=== PATIENT | male | born 1935 | race Caucasian/White ===

== ENCOUNTER 2016-09-27 07:36 | Inpatient (IN) | payer MEDICARE ==
[~2016-09-27] VITALS: Ht 177.8 cm; Wt 56.7 kg
[~2016-09-27 07:36] MED LIST: /TAMS4CA OR; /WARF25TA OR; ACET-654 PO; ASPI81TA83 OR; DICL250C70 PO; ENSULIQ9 PO; LISI5TAB OR; MUPI2OI TOP; PAIN325T OR; PERC5TAB8 OR; PERC7.5T8 OR
[2016-09-27 08:57] LABS: BASO % 0.1 % (0.0-1.0); EOS % 0.2 % (0.0-3.0); LARGE UNSTAINED CELL # 0.1 K/mm3 (0.0-0.4); LYMPH # 0.8 K/mm3 (1.5-4.5); LYMPH % 6.6 % (24.0-44.0); MEAN CORPUSCULAR HGB CONC 33.4 g/dl (32.0-36.5); MONO # 0.4 K/mm3 (0.0-0.8); MONO % 3.2 % (0.0-5.0); NEUTROPHILS # 10.3 K/mm3 (1.8-7.7); NEUTROPHILS % 88.9 % (36.0-66.0); PLATELET COUNT, AUTOMATED 296 k/mm3 (150-450); RED CELL DISTRIBUTION WIDTH 12.8 % (11.5-14.5); WHITE BLOOD COUNT 11.5 K/mm3 (4.0-10.0)
[2016-09-27 09:21] LABS: ANION GAP 6 MEQ/L (8-16); BLOOD UREA NITROGEN 26 MG/DL (7-18); CALCIUM LEVEL 8.9 MG/DL (8.8-10.2); CARBON DIOXIDE LEVEL 34 MEQ/L (21-32); CHLORIDE LEVEL 107 MEQ/L (98-107); CREATININE FOR GFR 0.91 MG/DL (0.70-1.30); GLOMERULAR FILTRATION RATE > 60.0 (>35); GLUCOSE, FASTING 103 MG/DL (83-110); POTASSIUM SERUM 3.6 MEQ/L (3.5-5.1); SODIUM LEVEL 147 MEQ/L (136-145)
--- NOTE | 2016-09-27 09:39 | REP ---
Semi upright AP and lateral chest radiograph 09/27/2016 Indication: Altered mental status Comparison: portable chest 07/15/2016, portable chest 02/24/2015 Findings: Atherosclerotic changes are noted in the ectatic thoracic aorta. Patchy interstitial infiltrates and/or atelectasis are present within lower lobes. There are also some patchy interstitial changes within the right upper lobe in parahilar location. There are no pleural effusions. Impression: Bibasilar interstitial infiltrates and/or atelectatic changes. Patchy interstitial changes in the right upper lobe in para hilar location. Differential diagnosis can include pneumonitis, atelectasis. Right parahilar mass is much less likely, and was not present on prior study 07/15/16. Recommend follow-up to insure complete resolution. Signed by Melisa De Jesus MD 09/27/2016 09:31 A
[2016-09-27] MEDS ORDERED: ZOSYN 3.375 GM VIAL (J2543) As Ordered ONE (14:12)
[2016-09-27] MEDS ORDERED: VANCOMYCIN 1000 MG/20 ML VIAL (J3370) As Ordered ONE (14:12)
--- NOTE | 2016-09-27 15:02 | HPEPDOC ---
Medical History and Physical Date of Admission 09/27/16 History and Physical ATTENDING: Dr. Bo PCP:Dr Deras CC: Flushed and coughing HPI: 81yoM with a past medical history significant for carotid vascular disease , expressive aphasia, hypertension, hyperlipidemia who is accompanied by his who states he has been ill with a cold for the past week. Over the past 24 hrs he has felt flushed. his AM He felt feverish to tough and cough was worse, rhinorrhea-white, lethargic. Denies anorexia. Denies any chills, VALADEZ, CP, SOB,palpitations, abdominal pain, N/V/D or changes in bowel or bladder habits. Pt with chronic incontinence and wears adult diapers. The patient's states he is very sensitive to any medications. He bruises very easily, he does not take any medications at home. he had been following with Dr Garcia for Left heel ulcer which has been healed per . Upon presentation to the hospital the patient was found to have HCAP, thus the hospitalist team was consulted. PMHx: Expressive aphasia Carotid vascular disease/status post carotid endarterectomy- Declines antiplatelet therapy Osteoarthritis Osteoporosis- declines treatment Vitamin D Def- declines supplement. Hypertension Hyperlipidemia- declines statin BPH Rosacea Chronic incontinence History of pressure ulcer/chronic wounds-left heel/right ankle- followed by Dr. Garcia PSHX: Colonoscopy February 2011 ORIF left hip fracture 08/28 Cataract OD 01/29 Left carotid endarterectomy complicated by hematoma postoperatively requiring second surgical procedure 12/29 Cataract OS SOCHX: Resides in: [place] Marital Status: Kids: 1 Employment: Retired financial services agent Tobacco use: Denies ETOH: Denies Illicit Drugs: Denies Recent travel: Denies Advanced directives: [facility]OL[facility] 01/04/16 DNR document is scanned into system FAMHX: Noncontributory ROS: Patient is unable to provide. PE: GEN: 81yoM, appears stated age. Thin, cachectic appearing. No acute distress. Alert, mumbling speech. HEENT: Normocephalic, atraumatic. Pupils are equal, round, and reactive to light. The patient will not open eyes for exam. Sclera are nonicteric. Conjunctiva without injection. Nose midline. Nasal turbinates without bogginess. EACs both patent BL. TMs both visualized and sheets with good cone of light, no bulging or erythema. No facial asymmetry noted. dry mucous membranes. Dentition poor. Pharynx pink and dry, no cobblestoning. Neck supple, trachea midline. No lymphadenopathy or thyromegaly appreciated. CHEST: Regular rate and rhythm +S1, +S2 LUNGS: Clear to auscultation bilaterally. No wheezes, rales, or rhonchi. Breathing appears symmetric and easy. No accessory muscle use. ABD: Round, soft, non-tender, non-distended. +Bowel sounds throughout. No rebound or guarding. No costovertebral angle tenderness. EXT: No edema. Contracture LLE. Dressing is applied to the left heel. this is removed and there is only a very small ulceration noted. There is a 4 x 4.5 cm black appearing pressure ulcer noted at right hip, 2 cm diameter ulcer noted right lateral elbow. SKIN: [place], dry, warm. NEURO: The patient is able to move his upper and lower extremities. He is lethargic. He is not following commands. Mumbling speech. CXR: Bibasilar interstitial infiltrates and/or atelectatic changes. Patchy interstitial changes in the right upper lobe in para hilar location. Differential diagnosis can include pneumonitis, atelectasis. Right parahilar mass is much less likely, and was not present on prior study 07/15/16. Recommend follow-up to insure complete resolution. EKG: Sinus bradycardia at 58 bpm Flu neg. A&P: 81yoM with a past medical history significant for carotid vascular disease, expressive aphasia, hypertension, hyperlipidemia who is accompanied by his who states he has been ill with a cold for the past week. Over the past 24 hrs he has felt flushed. his AM He felt feverish to tough and cough was worse, rhinorrhea-white, lethargic. The patient will be admitted to M/S for at least [address] Bo's service. Patient is discussed with Dr Acevedo. HCAP. IVF at 75 cc/hr. IV Vanco- pharmacy dosed /Levaquin renally dosed 750mg IV Q48hr- can re asses if renal function improves. Flu neg. BC x 2 pending. Sputum cx pending, (if pt able to provide). RUL changes on imaging noted and recommends f/u imaging to ensure resolution. History of expressive aphasia. Speech therapy evaluation is requested. Unsteady gait/H/O fall. Pt states no recent falls but loss balance and "hit " hip on chair in July. Will request PT/OT as well. Carotid vascular disease/carotid endarterectomy. Patient and have adamantly declined treatment with antiplatelet therapy as outpatient. As per outpatient records Plavix causes side effects, declines ASA. Hypertension. Patient does not take any medication as outpatient. Blood pressure in emergency department is noted to be 107/72. Monitor. Sinus bradycardia. HR 58on EKG. Trend in ED stable- 58-69. Hyperlipidemia. As per outpatient records, patient and have adamantly declined treatment with statin. History of pressure ulcer left heel. Pt with Pressure ulcer Rt Hip and elbow as well. -followed as outpatient by Dr. Garcia. Will request wound care, dressing changes. Wound care Clt requested. DVT prophylaxis. SCD/TEDS. concerned regarding ease of bruising. (Plt 144 07/20, 296 on admission.) The patient is a DNR per MOLST 01/04/16 scanned into [employer] I, Ceci Acevedo, have seen and examined the above patient and agree with the plan as documented by CLEMENTE Mix. Vital Signs 107/72 68 98.6 98%2 L NC Laboratory Data Labs 24H Laboratory Tests 2 09/27/16 08:37: Anion Gap 6L, White Blood Count 11.5H, Red Blood Count 3.41L, Hemoglobin 11.6L, Hematocrit 34.8L, Mean Corpuscular Volume 102.0H, Mean Corpuscular Hemoglobin 34.0H, Mean Corpuscular Hemoglobin Concent 33.4, Red Cell Distribution Width 12.8, Platelet Count 296, Neutrophils (%) (Auto) 88.9H, Lymphocytes (%) (Auto) 6.6L, Monocytes (%) (Auto) 3.2, Eosinophils (%) (Auto) 0.2, Basophils (%) (Auto ) 0.1, Neutrophils # (Auto) 10.3H, Lymphocytes # (Auto) 0.8L, Monocytes # (Auto ) 0.4, Eosinophils # (Auto) 0.0, Basophils # (Auto) 0.0, Blood Urea Nitrogen 26H , Creatinine 0.91, Sodium Level 147H, Potassium Level 3.6, Chloride Level 107, Carbon Dioxide Level 34H, Calcium Level 8.9, Total Creatine Kinase 742H, Creatine Kinase MB 12.6H, Creatine Kinase MB Relative Index 1.69, Glomerular Filtration Rate > 60.0, Lactic Acid Level 1.3, Large Unclassified Cells # 0.1, Large Unclassified Cells % 1.0, Troponin I 0.03 CBC/BMP Laboratory Tests 09/27/16 08:37 Calcium Level 8.9, Total Creatine Kinase 742 H, Red Blood Count 3.41 L, Mean Corpuscular Volume 102.0 H, Mean Corpuscular Hemoglobin 34.0 H, Mean Corpuscular Hemoglobin Concent 33.4, Red Cell Distribution Width 12.8, Neutrophils (%) (Auto) 88.9 H, Lymphocytes (%) (Auto) 6.6 L, Monocytes (%) (Auto ) 3.2, Eosinophils (%) (Auto) 0.2, Basophils (%) (Auto) 0.1, Neutrophils # (Auto ) 10.3 H, Lymphocytes # (Auto) 0.8 L, Monocytes # (Auto) 0.4, Eosinophils # ( Auto) 0.0, Basophils # (Auto) 0.0 Microbiology Microbiology 09/27/16 Blood Culture, Received Pending 09/27/16 Blood Culture, Received Pending 09/27/16 Influenza Virus Type A Antigen - Final, Complete 09/27/16 Influenza Virus Type B Antigen - Final, Complete Home Medications Scheduled (Ensure Plus) 1 Liq Liq 8 OZ PO QAM Scheduled PRN Acetaminophen (Acetaminophen) 325 Mg Tab 325 MG PO Q4H PRN PRN PAIN Allergies Coded Allergies: Unclassified Drugs (Unverified Adverse Reaction, Unknown, " STATES THE PT IS VERY SENSITIVE TO MANY MEDICATIONS", 09/27/16) Cassie Fuchs Sep 27, 2016 15:02 CECI ACEVEDO Sep 27, 2016 18:01
[2016-09-27] MEDS ORDERED: VANCOMYCIN HCL 1,000 MG, VIAL MATE ADAPTER 1 EACH in D5W 250 ML IV SCH (15:30)
[2016-09-27 17:15] VITALS: BP 114/58
--- NOTE | 2016-09-27 20:04 | EDDOCDS ---
Nurse's Notes [facility] Name: Conrado Mercado Age: 81 yrs Sex: Male : 1935 Arrival Date: 09/27/2016 Time: 07:36 Bed 15 Private MD: Diagnosis: Pneumonia, unspecified organism Presentation: 09/27 07:44 Presenting complaint: EMS states: SO called concerned pt felt flushed this morning, SO jjr reports upper respiratory symptoms over the last few days. Adult Sepsis Screening: The patient does not have new or worsening altered mentation. Patient's respiratory rate is less than 22. Systolic blood pressure is greater than 100. Patient has a qSOFA score of 0- Negative Sepsis Screen. Suicide/Homicide risk assessment- the patient denies having any suicidal and/or homicidal ideations and does not present with any other emotional, behavioral or mental health complaints. Status: Patient is not a industrial servicer or dependent. Transition of care: patient was not received from another setting of care. 07:44 Acuity: MARINA Level 3 r 07:44 Method Of Arrival: Ambulance jjr Triage Assessment: 08:09 General: Appears in no apparent distress, slender. Cardiovascular: Rhythm is sinus jr rhythm. Respiratory: Airway is patent Respiratory effort is even, unlabored, Respiratory pattern is regular. Derm: Skin is pink, warm & dry. 20:02 Pain: Unable to use pain scale. Does not appear to understand pain scale. ms18 Historical: - Allergies: no known allergies; - Home Meds: 1. 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 Patient is speech impaired. - Family history: Not pertinent. - : The pt / caregiver states he / she is not on anticoagulants. Home medication list is obtained from family members. - Exposure Risk Screening:: None identified. Screenin:45 Fall Risk. jjr 08:11 Screening information is obtained from family members. Fall risk: At risk due to age, jjr The following interventions are performed due to a positive Fall Risk Screen: added to special handling. Assistance ADL's: Requires assistance with meal preparation, this assistance is provided by family members, housework, assistance is provided by family members, medication administration, assistance is provided by family members. Abuse/DV Screen: The patient / caregiver reports he/she is: not in a situation that causes fear, pain or injury. Nutritional screening: No deficits noted. Advance Directives: Currently, there is a health care proxy, Patricia Mercado. There is an active DNR order but there is no copy available at this time. home support is adequate. Assessment: 08:11 General: Appears in no apparent distress. jjr 08:25 Adult Sepsis Screening: Accepted Exclusions- The Sepsis Protocol has been ordered by jr the Provider. 09:26 General: Appears to be sleeping. Cardiovascular: Rhythm is sinus rhythm. Respiratory: jjr Airway is patent Respiratory effort is even, unlabored, Respiratory pattern is regular. Derm: Skin is pink, warm & dry. 10:17 General: Appears to be sleeping. Behavior is drowsy. Cardiovascular: Rhythm is sinus jjr bradycardia. Respiratory: Airway is patent Respiratory effort is even, unlabored, Respiratory pattern is regular. Derm: Skin is pink, warm & dry. 11:25 General: Appears in no apparent distress, pt non verbal not nodding head to questions jjr either, pt's left leg contracted, pt's brief changed. Cardiovascular: Rhythm is sinus rhythm. Respiratory: Airway is patent Respiratory effort is even, unlabored, Respiratory pattern is regular, congested cough. Derm: Skin is pink, warm & dry. 12:12 General: Appears in no apparent distress, sitting quietly on stretcher with and jjr dgtr attentive at bedside. Respiratory: Airway is patent Respiratory effort is even, unlabored, Respiratory pattern is regular. Derm: Skin is pink, warm & dry. 14:04 General: Appears in no apparent distress. Cardiovascular: Rhythm is sinus rhythm. jjr Respiratory: Airway is patent Respiratory effort is even, unlabored, Respiratory pattern is regular. Derm: Skin is pink, warm & dry. 15:20 Reassessment: Patient appears in no apparent distress at this time. Cardiovascular: tm5 Rhythm is sinus rhythm No ectopy. Respiratory: Airway is patent Respiratory effort is even, unlabored, Respiratory pattern is regular. Derm: Skin is pink, warm & dry. 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 18:55 General: Pt in no acute distress. Family at bedside. Will continue to monitor pt. ms18 19:54 General: Spoke with Eliane in [facility] and they are ready for the pt at this time. ms18 General: Appears in no apparent distress, comfortable, Behavior is cooperative, quiet. Respiratory: Airway is patent Respiratory effort is even, unlabored. Derm: Skin is pink, warm & dry. 20:03 Neurological: Level of Consciousness is awake, alert, Oriented to none. ms18 Vital Signs: 07:46 BP 130 / 70; Pulse 69; Resp 18; Temp 98.9(TE); Pulse Ox 96% on R/A; Weight 54.6 kg (M); ct3 Height 5 ft. 10 in. (177.80 cm) (R); 07:58 BP 109 / 54 (auto/); jjr 07:58 Pulse 68 MON; Pulse Ox 90% ; jjr 08:13 BP 96 / 50 (auto/); jjr 08:13 Pulse 64 MON; Resp 18; Pulse Ox 93% on R/A; jjr 08:28 BP 100 / 59 (auto/); jjr 08:28 Pulse 58 MON; Pulse Ox 93% ; jjr 09:05 Pulse 88 MON; Pulse Ox 96% ; jjr 09:22 BP 97 / 53 (auto/); jjr 09:22 Pulse 60 MON; Resp 18; Pulse Ox 96% on R/A; jjr 09:43 BP 104 / 51 (auto/); jjr 09:43 Pulse 58 MON; Pulse Ox 89% ; jjr 09:49 Pulse 58 MON; Pulse Ox 90% ; jjr 09:50 Pulse 62 MON; Pulse Ox 88% ; jjr 09:55 Pulse 56 MON; Pulse Ox 97% on 2 lpm NC; jjr 10:43 BP 111 / 64 (auto/); jjr 10:43 Pulse 62 MON; Resp 18; Pulse Ox 97% on R/A; jjr 11:13 BP 119 / 60 (auto/); jjr 11:13 Pulse 62 MON; Resp 18; Pulse Ox 97% on 2 lpm NC; jjr 11:43 BP 97 / 52 (auto/); jjr 11:43 Pulse 62 MON; Resp 20; Pulse Ox 97% on 2 lpm NC; jjr 12:13 BP 100 / 50 (auto/); jjr 12:13 Pulse 64 MON; Pulse Ox 97% ; jjr 12:14 Temp 98.6(TE); jjr 12:43 BP 113 / 53 (auto/); jjr 12:43 Pulse 66 MON; Pulse Ox 98% ; jjr 13:13 BP 113 / 53 (auto/); jjr 13:13 Pulse 70 MON; Pulse Ox 96% ; jjr 13:43 BP 107 / 72 (auto/); jjr 13:43 Pulse 68 MON; Pulse Ox 96% ; jjr 14:13 BP 120 / 55 (auto/); tm5 14:13 Pulse 70 MON; Pulse Ox 97% on 2 lpm NC; tm5 14:43 BP 108 / 53 (auto/); tm5 14:43 Pulse 70 MON; Pulse Ox 98% ; tm5 15:13 BP 122 / 60 (auto/); tm5 15:13 Pulse 62 MON; Resp 20; Pulse Ox 98% on 2 lpm NC; Pain 0/10; tm5 16:13 BP 109 / 68 (auto/); tm5 16:13 Pulse 64 MON; Resp 18 S; Pulse Ox 96% on 2 lpm NC; Pain 0/10; tm5 16:43 BP 114 / 58 (auto/); ms18 16:43 Pulse 64 MON; Pulse Ox 87% ; ms18 17:13 BP 116 / 74 (auto/); Pulse 60; Resp 18; Temp 96.6(T); Pulse Ox 98% on 2 lpm NC; jjr 17:43 BP 115 / 56 (auto/); jjr 17:43 Pulse 58 MON; Resp 18; Pulse Ox 97% on 2 lpm NC; jjr 20:02 BP 123 / 62; Pulse 80; Resp 18; Temp 98.8(TE); Pulse Ox 98% ; ms18 07:46 Body Mass Index 17.27 (54.60 kg, 177.80 cm) ct3 Vitals: 19:58 Log In Time N/A - ambulance arrival. ms18 ED Course: 07:37 Patient visited by Jessika Stockton, Neuropsychiatrist. deg 07:37 Patient moved to Waiting deg 07:37 Patient moved to 15 deg 07:45 Triage Initiated jjr 07:46 Accompanied by Family Member, Patient has correct armband on for positive ct3 identification. Placed in gown. Bed in low position. Call light in reach. Side rails up X2. casket liner on. Pulse ox on. NIBP on. 07:47 Patient visited by Bea Bobby PCA. ct3 08:07 Victor M Del Valle MD is Attending Physician. br1 08:11 The patient / caregiver is instructed regarding the plan of care and ED course. jjr 08:13 Patient visited by Maday Guerrero RN. jjr 08:16 Patient visited by Victor M Del Valle MD. br1 08:39 -Influenza A&B Rapid Antigen - Nose Sent. jmk 08:39 Lactic Acid (Moffett tube on ice) Sent. jmk 08:39 -Blood Culture Sent. jmk 08:39 Basic Metabolic Profile Sent. jmk 08:39 CBC with Diff Sent. jmk 08:39 Cardiac Injury Profile Sent. jmk 08:39 Troponin Sent. jmk 08:54 EKG done. (by ED staff). Reviewed by Victor M Del Valle MD. ct3 09:01 Patient visited by Bea Bobby PCA. ct3 09:06 Inserted saline lock: 20 gauge in right antecubital area and blood collected. jjr Labs/Blood culture drawn. 09:26 Patient visited by Maday Guerrero RN. jjr 09:41 [facility] Payment Agreement was scanned into [employer] and attached to record. lg 09:47 Chest, 2 View (pa\E\lat) Returned. EDMS 09:57 O2 via nasal cannula \T\ 2L/min. jjr 10:17 Patient visited by Maday Guerrero RN. jjr 11:25 Patient visited by Maday Guerrero RN. jjr 11:58 Patient visited by Nelda Frank PCA. jlf 12:13 Patient visited by Maday Guerrero RN. jjr 12:50 Patient visited by Nelda Frank PCA. jlf 12:53 Patient visited by Bea Bobby PCA. ct3 12:53 Diet: Patient given regular meal. ct3 13:22 Patient visited by Nelda Frank PCA. jlf 14:03 Patient visited by Victor M Del Valle MD. br1 14:06 Curtis Ceci is Hospitalizing Provider. br1 14:24 Patient visited by Bianca Trujillo,ÓSCAR. tm5 14:40 Patient visited by Bianca Trujillo RN. tm5 14:40 Visited by Hospitalist at bedside for admission eval. tm5 16:15 Patient visited by Bianca Trujillo,ÓSCAR. tm5 16:43 Property :Personal belongings accompany Pt. ms18 16:43 No procedures done that require assistance. ms18 18:00 Patient visited by Maday Guerrero RN. jjr Administered Medications: 14:25 Drug: Piperacillin-Tazobactam 3.375 grams [piperacillin-tazobactam 3.375 gram tm5 intravenous solution] Route: IVPB; Infused Over: 30 mins; Site: right antecubital; 15:13 Follow up: IV Status: Completed infusion; IV Intake: 50ml tm5 15:14 Drug: vancomycin 1 grams [vancomycin 1,000 mg intravenous injection] {Note: given IVPB tm5 in D5W 250cc.} Route: IVPB; Infused Over: 60 mins; Site: right antecubital; 16:15 Follow up: IV Status: Completed infusion; IV Intake: 250ml tm5 Intake: 15:13 IV: 50.00ml; Total: 50.00ml. tm5 16:15 IV: 250.00ml; Total: 300.00ml. tm5 Order Results: Lab Order: Basic Metabolic Profile; SPEC'M 09/27/16 08:37 Test: GLUCOSE, FASTING; Value: 103; Range: 83-110; Units: MG/DL; Status: F Test: BLOOD UREA NITROGEN; Value: 26; Range: 7-18; Abnormal: Above high normal; Units: MG/DL; Status: F Test: CREATININE FOR GFR; Value: 0.91; Range: 0.70-1.30; Units: MG/DL; Status: F Test: GLOMERULAR FILTRATION RATE; Value: > 60.0; Range: >35; Status: F Test: SODIUM LEVEL; Value: 147; Range: 136-145; Abnormal: Above high normal; Units: MEQ/L; Status: F Test: POTASSIUM SERUM; Value: 3.6; Range: 3.5-5.1; Units: MEQ/L; Status: F Test: CHLORIDE LEVEL; Value: 107; Range: 98-107; Units: MEQ/L; Status: F Test: CARBON DIOXIDE LEVEL; Value: 34; Range: 21-32; Abnormal: Above high normal; Units: MEQ/L; Status: F Test: ANION GAP; Value: 6; Range: 8-16; Abnormal: Below low normal; Units: MEQ/L; Status: F Test: CALCIUM LEVEL; Value: 8.9; Range: 8.8-10.2; Units: MG/DL; Status: F Test Note: ; Units are mL/min/1.73 m2 Chronic Kidney Disease Staging per NKF: Stage I & II GFR >=60 Normal to Mildly Decreased Stage III GFR 30-59 Moderately Decreased Stage IV GFR 15-29 Severely Decreased Stage V GFR <15 Very Little GFR Left ESRD GFR <15 on [employer] SUPERVISOR Lab Order: CBC with Diff; SPEC'M 09/27/16 08:37 Test: WHITE BLOOD COUNT; Value: 11.5; Range: 4.0-10.0; Abnormal: Above high normal; Units: K/mm3; Status: F Test: RED BLOOD COUNT; Value: 3.41; Range: 4.30-6.10; Abnormal: Below low normal; Units: M/mm3; Status: F Test: HEMOGLOBIN; Value: 11.6; Range: 14.0-18.0; Abnormal: Below low normal; Units: g/dl; Status: F Test: HEMATOCRIT; Value: 34.8; Range: 42.0-52.0; Abnormal: Below low normal; Units: %; Status: F Test: MEAN CORPUSCULAR VOLUME; Value: 102.0; Range: 80.0-96.0; Abnormal: Above high normal; Units: fl; Status: F Test: MEAN CORPUSCULAR HEMOGLOBIN; Value: 34.0; Range: 27.0-33.0; Abnormal: Above high normal; Units: pg; Status: F Test: MEAN CORPUSCULAR HGB CONC; Value: 33.4; Range: 32.0-36.5; Units: g/dl; Status: F Test: RED CELL DISTRIBUTION WIDTH; Value: 12.8; Range: 11.5-14.5; Units: %; Status: F Test: PLATELET COUNT, AUTOMATED; Value: 296; Range: 150-450; Units: k/mm3; Status: F Test: NEUTROPHILS %; Value: 88.9; Range: 36.0-66.0; Abnormal: Above high normal; Units: %; Status: F Test: LYMPH %; Value: 6.6; Range: 24.0-44.0; Abnormal: Below low normal; Units: %; Status: F Test: MONO %; Value: 3.2; Range: 0.0-5.0; Units: %; Status: F Test: EOS %; Value: 0.2; Range: 0.0-3.0; Units: %; Status: F Test: BASO %; Value: 0.1; Range: 0.0-1.0; Units: %; Status: F Test: LARGE UNSTAINED CELL %; Value: 1.0; Range: 0.0-4.0; Units: %; Status: F Test: NEUTROPHILS #; Value: 10.3; Range: 1.8-7.7; Abnormal: Above high normal; Units: K/mm3; Status: F Test: LYMPH #; Value: 0.8; Range: 1.5-4.5; Abnormal: Below low normal; Units: K/mm3; Status: F Test: MONO #; Value: 0.4; Range: 0.0-0.8; Units: K/mm3; Status: F Test: EOS #; Value: 0.0; Range: 0.0-0.50; Units: K/mm3; Status: F Test: BASO #; Value: 0.0; Range: 0.0-0.2; Units: K/mm3; Status: F Test: LARGE UNSTAINED CELL #; Value: 0.1; Range: 0.0-0.4; Units: K/mm3; Status: F Lab Order: Cardiac Injury Profile; SPEC'M 09/27/16 08:37 Test: CPK CREATINE PHOSPHOKINASE; Value: 742; Range: 39-308; Abnormal: Above high normal; Units: U/L; Status: F Test: CK-MB VALUE MASS; Value: 12.6; Range: 0.0-3.6; Abnormal: Above high normal; Units: NG/ML; Status: F Test: MB/CK RELATIVE INDEX; Value: 1.69; Range: < OR =4; Status: F Test Note: ; DIAGNOSIS CRITERIA MMB ng/ml Relative Index (RI) NON-AMI < or = 5 N/A MOFFETT ZONE > 5 < or = 4 AMI > 5 > 4 Lab Order: Troponin; SPEC'M 09/27/16 08:37 Test: TROPONIN I; Value: 0.03; Range: < 0.10; Units: NG/ML; Status: F Test Note: ; Troponin I Reference Interval for [place] LOCI: 99th Percentile= 0.00-0.045 ng/ml Risk Stratification: <= 0.10 ng/ml Decreased Risk for Adverse Clinical Events. 0.10-1.50 ng/ml Increased Risk for Adverse Clinical Events. Evaluation of additional criterion and/or repeat testing in 2-6 hours is suggested to rule out myocardial damage. >= 1.50 ng/ml Indicative of Myocardial Injury. Lab Order: Lactic Acid (Moffett tube on ice); SPEC'M 09/27/16 08:37 Test: LACTIC ACID LEVEL, LACTATE; Value: 1.3; Range: 0.4-2.0; Units: MMOL/L; Status: F Lab Order: -Influenza A&B Rapid Antigen - Nose; SPEC'M 09/27/16 08:37 Test: INFLUENZA A RAPID SCR by ICA; Value: INFLUENZA A RESULTS NEGATIVE; Status: F Test: INFLUENZA A RAPID SCR by ICA; Value: Comments:; Status: F Test: INFLUENZA B RAPID SCR by ICA; Value: INFLUENZA B RESULTS NEGATIVE; Status: F Test Note: ; The Influenza test is a direct rapid immunoassay for the qualitative detection of Influenza viral antigen. Cell culture (Viral Culture) testing should be considered to confirm NEGATIVE results and to assist in detecting other viruses that can provide similar clinical symptoms. Please contact the lab within 24 hours ([phone]) if confirmatory testing is desired. Radiology Order: Chest, 2 View (pa\E\lat) Test: Chest, 2 View (pa\E\lat) REASON FOR EXAMINATION: Cough; Semi upright AP and lateral chest radiograph 09/27/2016; ; Indication: Altered mental status; ; Comparison: portable chest 07/15/2016, portable chest 02/24/2015; ; Findings: Atherosclerotic changes are noted in the ectatic thoracic aorta.; Patchy interstitial infiltrates and/or atelectasis are present within lower; lobes. There are also some patchy interstitial changes within the right upper; lobe in parahilar location. There are no pleural effusions.; ; Impression:; ; Bibasilar interstitial infiltrates and/or atelectatic changes.; ; Patchy interstitial changes in the right upper lobe in para hilar location.; Differential diagnosis can include pneumonitis, atelectasis. Right parahilar; mass is much less likely, and was not present on prior study 07/15/16.; Recommend follow-up to insure complete resolution.; ; ; Signed by; Melisa De Jesus MD 09/27/2016 09:31 A; Outcome: 14:06 Decision to Hospitalize by Provider. br1 16:43 Discharge Assessment: patient administered narcotics - no. The following High Risk ms18 Discharge criteria are identified: None. Admitted to Med/Surg accompanied by tech, family with patient, via stretcher, with chart. Condition: stable. No special radiology studies were completed. 20:04 Patient left the ED. ms18 Signatures: Dispatcher [employer] EDJessika Shelley, Neuropsychiatrist Unit deg Matthieu Guevara,ÓSCAR RN Eunice Osuna, Reg Reg lg Victor M Del Valle MD MD br1 Maday Guerrero RN RN Bea Clinton, CLAM GRADER CLAM GRADER ct3 Nelda Frank, CLAM GRADER CLAM GRADER raleighf Cheri Freeman RN RN ms18 Bianca Trujillo,RN RN tm5 Corrections: (The following items were deleted from the chart) 08:14 08:11 Home Meds: Tylenol 325 mg Oral tab 2 tabs prn; angelica dominguez 20:03 19:54 General: Appears in no apparent distress, comfortable, Behavior is drowsy, ms18 ms18 MTDD
--- NOTE | 2016-09-27 20:04 | EDDOCDS ---
Physician Documentation [facility] Name: Conrado Mercado Age: 81 yrs Sex: Male : 1935 Arrival Date: 09/27/2016 Time: 07:36 Bed 15 Private MD: Disposition: 09/27/16 14:06 Hospitalization ordered by Ceci Acevedo for Inpatient Admission. Preliminary diagnosis is Pneumonia, unspecified organism. - Bed requested for [facility]. - Status is Inpatient Admission. ms18 - Condition is Stable. - Problem is new. - Symptoms are unchanged. Historical: - Allergies: no known allergies; - Home Meds: 1. 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 Patient is speech impaired. - Family history: Not pertinent. - : The pt / caregiver states he / she is not on anticoagulants. Home medication list is obtained from family members. - Exposure Risk Screening:: None identified. Vital Signs: 09/27 07:46 BP 130 / 70; Pulse 69; Resp 18; Temp 98.9(TE); Pulse Ox 96% on R/A; Weight 54.6 kg / ct3 120.37 lbs (M); Height 5 ft. 10 in. (177.80 cm) (R); 07:58 BP 109 / 54 (auto/); jjr 07:58 Pulse 68 MON; Pulse Ox 90% ; jjr 08:13 BP 96 / 50 (auto/); jjr 08:13 Pulse 64 MON; Resp 18; Pulse Ox 93% on R/A; jjr 08:28 BP 100 / 59 (auto/); jjr 08:28 Pulse 58 MON; Pulse Ox 93% ; jjr 09:05 Pulse 88 MON; Pulse Ox 96% ; jjr 09:22 BP 97 / 53 (auto/); jjr 09:22 Pulse 60 MON; Resp 18; Pulse Ox 96% on R/A; jjr 09:43 BP 104 / 51 (auto/); jjr 09:43 Pulse 58 MON; Pulse Ox 89% ; jjr 09:49 Pulse 58 MON; Pulse Ox 90% ; jjr 09:50 Pulse 62 MON; Pulse Ox 88% ; jjr 09:55 Pulse 56 MON; Pulse Ox 97% on 2 lpm NC; jjr 10:43 BP 111 / 64 (auto/); jjr 10:43 Pulse 62 MON; Resp 18; Pulse Ox 97% on R/A; jjr 11:13 BP 119 / 60 (auto/); jjr 11:13 Pulse 62 MON; Resp 18; Pulse Ox 97% on 2 lpm NC; jjr 11:43 BP 97 / 52 (auto/); jjr 11:43 Pulse 62 MON; Resp 20; Pulse Ox 97% on 2 lpm NC; jjr 12:13 BP 100 / 50 (auto/); jjr 12:13 Pulse 64 MON; Pulse Ox 97% ; jjr 12:14 Temp 98.6(TE); jjr 12:43 BP 113 / 53 (auto/); jjr 12:43 Pulse 66 MON; Pulse Ox 98% ; jjr 13:13 BP 113 / 53 (auto/); jjr 13:13 Pulse 70 MON; Pulse Ox 96% ; jjr 13:43 BP 107 / 72 (auto/); jjr 13:43 Pulse 68 MON; Pulse Ox 96% ; jjr 14:13 BP 120 / 55 (auto/); tm5 14:13 Pulse 70 MON; Pulse Ox 97% on 2 lpm NC; tm5 14:43 BP 108 / 53 (auto/); tm5 14:43 Pulse 70 MON; Pulse Ox 98% ; tm5 15:13 BP 122 / 60 (auto/); tm5 15:13 Pulse 62 MON; Resp 20; Pulse Ox 98% on 2 lpm NC; Pain 0/10; tm5 16:13 BP 109 / 68 (auto/); tm5 16:13 Pulse 64 MON; Resp 18 S; Pulse Ox 96% on 2 lpm NC; Pain 0/10; tm5 16:43 BP 114 / 58 (auto/); ms18 16:43 Pulse 64 MON; Pulse Ox 87% ; ms18 17:13 BP 116 / 74 (auto/); Pulse 60; Resp 18; Temp 96.6(T); Pulse Ox 98% on 2 lpm NC; jjr 17:43 BP 115 / 56 (auto/); jjr 17:43 Pulse 58 MON; Resp 18; Pulse Ox 97% on 2 lpm NC; jjr 20:02 BP 123 / 62; Pulse 80; Resp 18; Temp 98.8(TE); Pulse Ox 98% ; ms18 07:46 Body Mass Index 17.27 (54.60 kg, 177.80 cm) ct3 MDM: 08:17 Inspector Water Pollution Control/Pulse Ox/q 30 min VS ordered. br1 08:17 IV Saline Lock ordered. br1 08:17 Rhythm Strip to chart ordered. br1 08:17 Undress patient appropriately for examination ordered. br1 08:17 -Blood Culture (Adults Only), peripheral from different site, or from device/port/PICC br1 etc. if present ordered. 08:18 -Blood Culture Ordered. EDMS 08:18 Chest, 2 View (pa\E\lat) Ordered. EDMS 08:18 Basic Metabolic Profile Ordered. EDMS 08:18 CBC with Diff Ordered. EDMS 08:18 Cardiac Injury Profile Ordered. EDMS 08:18 Troponin Ordered. EDMS 08:18 Lactic Acid (Moffett tube on ice) Ordered. EDMS 08:18 ECG WITH READING ER PHYS+CARDIAG ordered. EDMS 08:19 -Influenza A&B Rapid Antigen - Nose Ordered. EDMS 08:21 -Blood Culture (Adults Only), peripheral from different site, or from device/port/PICC deg etc. if present complete. 08:22 BLOOD CULTURES Ordered. EDMS 09:07 Financial registration complete. lg 09:41 [facility] [place] Payment Agreement was scanned into [employer] and attached to record. lg 10:15 REGULAR+DIET ordered. EDMS 12:35 REGULAR+DIET ordered. EDMS 13:41 Basic Metabolic Profile Reviewed. br1 13:41 CBC with Diff Reviewed. br1 13:41 Cardiac Injury Profile Reviewed. br1 13:41 Troponin Reviewed. br1 13:41 Lactic Acid (Moffett tube on ice) Reviewed. br1 13:41 -Influenza A&B Rapid Antigen - Nose Reviewed. br1 13:41 Chest, 2 View (pa\E\lat) Reviewed. br1 14:04 BED REQUEST+ADM ordered. EDMS 14:04 vancomycin 1 grams IVPB once over 60 mins; dilute in 250mL of NS or D5W ordered. br1 14:04 Piperacillin-Tazobactam 3.375 grams IVPB once over 30 mins; dilute in 50mL of NS or D5W br1 ordered. 15:03 Admission / Observation Status ordered. EDMS 15:18 REGULAR DIET ordered. EDMS 15:18 OTHER CUSTOM DIETS ordered. EDMS 15:18 PHYSICAL THERAPY EVAL & TREAT ordered. EDMS 15:41 SPUTUM CULTURE AND GRAM STAIN Ordered. EDMS 19:31 CBC WITH DIFFERENTIAL Ordered. EDMS 19:31 COMPLETE COMPHRENSIVE METABOLI Ordered. EDMS Administered Medications: 14:25 Drug: Piperacillin-Tazobactam 3.375 grams [piperacillin-tazobactam 3.375 gram tm5 intravenous solution] Route: IVPB; Infused Over: 30 mins; Site: right antecubital; 15:13 Follow up: IV Status: Completed infusion; IV Intake: 50ml tm5 15:14 Drug: vancomycin 1 grams [vancomycin 1,000 mg intravenous injection] {Note: given IVPB tm5 in D5W 250cc.} Route: IVPB; Infused Over: 60 mins; Site: right antecubital; 16:15 Follow up: IV Status: Completed infusion; IV Intake: 250ml tm5 Signatures: Dispatcher [employer] EDJessika Shelley, Negative Stripper Unit deg Eunice Kerr Reg Reg lg Roggie, Brian, MD MD br1 Maday Guerrero RN RN jjr Smith, Mallory, RN RN ms18 Alfredo Potts RN RN mts Matice, Tonya RN tm5 The chart was reviewed and I authenticate all verbal orders and agree with the evaluation and treatment provided.Corrections: (The following items were deleted from the chart) 08:14 08:11 Home Meds: Tylenol 325 mg Oral tab 2 tabs prn; jjmari dominguez Attachments: 09:41 [facility] Payment Agreement lg MTDD
[2016-09-27 20:12] VITALS: BP 121/56
--- NOTE | 2016-09-27 20:41 | PHACANCOPD ---
PHARMACY VANCOMYCIN DOSING Pt Demographics Demographics Patient Age:81 , Weight:54.600 , Gender: male Adjusted Body Weight Events Past 24 Hours Events Past 24 Hours: NO: Change in CrCl, Dialysis, Diuretic Therapy, Elevation in WBC, Fever, Other, Pending Diagnostics, Pending Procedures Vancomycin Vancomycin Target Ranges: 15-20 mcg/ml Vancomycin Load Y/N: Yes Load Dose Date Time Vancomycin Load Dose: 1GM Date: 09/27/16 Time: 14:15 in the ER Vancomycin Dose Date: 09/27/16. Current Vancomycin Dose: [750 MG IV Q12H (22:00)] Intermittent Dosing?: No Labs Labs Laboratory Tests 09/27/16 08:37 Calcium Level 8.9, Total Creatine Kinase 742 H, Red Blood Count 3.41 L, Mean Corpuscular Volume 102.0 H, Mean Corpuscular Hemoglobin 34.0 H, Mean Corpuscular Hemoglobin Concent 33.4, Red Cell Distribution Width 12.8, Neutrophils (%) (Auto) 88.9 H, Lymphocytes (%) (Auto) 6.6 L, Monocytes (%) (Auto ) 3.2, Eosinophils (%) (Auto) 0.2, Basophils (%) (Auto) 0.1, Neutrophils # (Auto ) 10.3 H, Lymphocytes # (Auto) 0.8 L, Monocytes # (Auto) 0.4, Eosinophils # ( Auto) 0.0, Basophils # (Auto) 0.0 Micro Microbiology 09/27/16 Blood Culture, Received Pending 09/27/16 Blood Culture, Received Pending 09/27/16 Influenza Virus Type A Antigen - Final, Complete 09/27/16 Influenza Virus Type B Antigen - Final, Complete Creatinine Clearance Date:09/27/16. Creatinine Clearance: [>40 ml/min]. Assessment and Plan Maintaining Current Dose?: No Reason for dose change: Other Pharmacist Note Pharmacist Note Date: 09/27/16. Pharm.D. note: 81YO MALE, 54.6KG in WEIGHT, 70" in HEIGHT, CRCL > 40ml/min IS ADMITTED WITH HCAP AND A VANCO GOAL 15-20 mcg/ml. HE WAS GIVEN A 1GM DOSE IN THE ER AT 14:15 THIS AFTERNOON. WE SHALL CONTINUE HIM ON VANCO 750MG IV Q12H STARTING AT 22:00 THIS EVENING. WE WILL DRAW A VANCO TR WHEN HE IS AT STEADY STATE NETTE,[facility] Sep 27, 2016 20:40
[2016-09-27] MEDS: VANCOMYCIN HCL 750 MG, VIAL MATE ADAPTER 1 EACH in D5W 250 ML IV SCH (21:52)
[2016-09-27] MEDS: NS 1,000 ML IV SCH (21:52)
[2016-09-28] MEDS: LevoFLOXacin 750 MG in APPROPRIATE DILUENT 1 EA IV SCH (00:14)
[2016-09-28] MEDS: NS 1,000 ML IV SCH ×2 (04:58→16:50)
[2016-09-28 06:00] VITALS: BP 111/53
[2016-09-28 06:47] LABS: BASO % 0.1 % (0.0-1.0); EOS # 0.1 K/mm3 (0.0-0.50); EOS % 0.5 % (0.0-3.0); LARGE UNSTAINED CELL # 0.1 K/mm3 (0.0-0.4); LARGE UNSTAINED CELL % 1.1 % (0.0-4.0); LYMPH # 0.8 K/mm3 (1.5-4.5); LYMPH % 6.7 % (24.0-44.0); MEAN CORPUSCULAR HEMOGLOBIN 34.4 pg (27.0-33.0); MEAN CORPUSCULAR HGB CONC 33.4 g/dl (32.0-36.5); MEAN CORPUSCULAR VOLUME 103.1 fl (80.0-96.0); MONO # 0.4 K/mm3 (0.0-0.8); MONO % 3.3 % (0.0-5.0); NEUTROPHILS # 10.1 K/mm3 (1.8-7.7); NEUTROPHILS % 88.3 % (36.0-66.0); PLATELET COUNT, AUTOMATED 303 k/mm3 (150-450); RED CELL DISTRIBUTION WIDTH 12.6 % (11.5-14.5); WHITE BLOOD COUNT 11.4 K/mm3 (4.0-10.0)
[2016-09-28 07:08] LABS: ALBUMIN 1.6 GM/DL (3.2-5.2); ALBUMIN/GLOBULIN RATIO 0.41 (1.00-1.93); ALKALINE PHOSPHATASE 150 U/L (45-117); ALT/SGPT 72 U/L (12-78); ANION GAP 7 MEQ/L (8-16); AST/SGOT 106 U/L (15-37); BILIRUBIN,TOTAL 0.5 MG/DL (0.2-1.0); BLOOD UREA NITROGEN 25 MG/DL (7-18); CALCIUM LEVEL 8.4 MG/DL (8.8-10.2); CARBON DIOXIDE LEVEL 32 MEQ/L (21-32); CHLORIDE LEVEL 105 MEQ/L (98-107); CREATININE FOR GFR 0.75 MG/DL (0.70-1.30); GLOMERULAR FILTRATION RATE > 60.0 (>35); GLUCOSE, FASTING 89 MG/DL (83-110); POTASSIUM SERUM 3.6 MEQ/L (3.5-5.1); SODIUM LEVEL 144 MEQ/L (136-145); TOTAL PROTEIN 5.5 GM/DL (6.4-8.2)
[2016-09-28 08:05] VITALS: BP 111/53
[2016-09-28] MEDS: VANCOMYCIN HCL 750 MG, VIAL MATE ADAPTER 1 EACH in D5W 250 ML IV SCH (10:36)
[2016-09-28 14:00] VITALS: BP 117/71
--- NOTE | 2016-09-28 14:06 | IPNPDOC ---
Text Note Date of Service The patient was seen on 09/28/16 at 13:46. NOTE Subjective: Pt is nonverbal. states he's tolerating PO, and doing well. Objective: Vitals: (see below) General: No acute distress, laying comfortably in bed. HEENT: Moist mucous membranes. Neck: No JVD or lymphadenopathy. Cardiac: RRR, No murmurs Pulm: Diminished breath sounds and crackles at the bases b/l. No wheezing or rhonchi Abd: NT/ND + BS Ext: No edema or cyanosis Awake, expressive aphasia, Following commands, moving both arms, LE contracted. b/l heel pressure ulcers healing with bandage intact. Minimal participation with neuro exam. Labs (see below) Images: CXR 09/27/16 Impression: Bibasilar interstitial infiltrates and/or atelectatic changes. Patchy interstitial changes in the right upper lobe in para hilar location. Differential diagnosis can include pneumonitis, atelectasis. Right parahilar mass is much less likely, and was not present on prior study 07/15/16. Recommend follow-up to insure complete resolution. Assessment/Plan 1. HCAP - on Vanc/Levaquin. Trend CRP, WBC. Blood cx/sputum cx pending. Cont IVF. Mild leukocytosis. 2. 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 Not on ASA/plavix/statin? I have called Dr. Deras's office who will be getting back to me. 3. Pressure ulcers noted on admission on right hip, and 2cm - follows with Dr. Garcia. Wound care requested on admission 4. HTN - diet controlled. Stable. 5. Severe Protein Calorie Malnutrition noted on admission DVT prophy: LEVI/SCDs. VS,Fishbone, I+O VS, Fishbone, I+O Laboratory Tests 09/28/16 06:06 Calcium Level 8.4 L, Aspartate Amino Transf (AST/SGOT) 106 H, Alanine Aminotransferase (ALT/SGPT) 72, Alkaline Phosphatase 150 H, Total Bilirubin 0.5 , Total Protein 5.5 L, Albumin 1.6 L, Red Blood Count 2.92 L, Mean Corpuscular Volume 103.1 H, Mean Corpuscular Hemoglobin 34.4 H, Mean Corpuscular Hemoglobin Concent 33.4, Red Cell Distribution Width 12.6, Neutrophils (%) (Auto) 88.3 H, Lymphocytes (%) (Auto) 6.7 L, Monocytes (%) (Auto) 3.3, Eosinophils (%) (Auto) 0.5, Basophils (%) (Auto) 0.1, Neutrophils # (Auto) 10.1 H, Lymphocytes # (Auto ) 0.8 L, Monocytes # (Auto) 0.4, Eosinophils # (Auto) 0.1, Basophils # (Auto) 0.0 Vital Signs Date Time Temp Pulse Resp B/P Pulse Ox O2 Delivery O2 Flow Rate FiO2 09/28/16 08:16 96 Room Air 09/28/16 08:05 97.0 61 17 111/53 2.0 I&O- Last 24 Hours up to 6 AM 09/28/16 05:59 Intake Total 425 ml Balance 425 ml KIRA ERAZO MD Sep 28, 2016 14:05
--- NOTE | 2016-09-28 19:42 | ECGEPIP ---
Stationary ECG Study [facility] - ED Test Date: 2016-09-27 Pat Name: THIEN RAVI Department: Room: - Gender: M Pool Nurse: ct : 1935 Requested By: REGULO Briseno Order Number: [id number] Reading MD: Opal Moya Measurements Intervals [place] Rate: 58 P: 64 MD: 147 QRS: 40 QRSD: 93 T: 53 QT: 416 QTc: 409 Interpretive Statements SINUS BRADYCARDIA POSSIBLE LATERAL MYOCARDIAL INFARCTION, OF INDETERMINATE AGE NSTTW ABNORMALITY BASELINE ARTIFACT LIMITS INTERPRETATION Electronically Signed On 09-28-2016 19:41:50 EST by Opal Moya
[2016-09-28] MEDS: ACETAMINOPHEN TAB 650MG DOSE (2X325MG) PO PRN (19:48)
--- NOTE | 2016-09-28 21:41 | PHACANCOPD ---
PHARMACY VANCOMYCIN DOSING Pt Demographics Demographics Patient Age:81 , Weight:55.800 , Gender: male Adjusted Body Weight Events Past 24 Hours Events Past 24 Hours: NO: Change in CrCl, Dialysis, Diuretic Therapy, Elevation in WBC, Fever, Other, Pending Diagnostics, Pending Procedures Vancomycin Vancomycin Target Ranges: 15-20 mcg/ml Vancomycin Load Y/N: Yes Load Dose Date Time Vancomycin Load Dose: 1GM Date: 09/27/16 Time: 14:15 in the ER Vancomycin Dose Date: 09/28/16. INCREASE Current Vancomycin Dose: [1000 MG IV Q12H (22:00)] Intermittent Dosing?: No Labs Micro Microbiology 09/27/16 Blood Culture - Preliminary, Resulted No growth after 24 hours . All specim... 09/27/16 Blood Culture - Preliminary, Resulted No growth after 24 hours . All specim... Creatinine Clearance Date:09/27/16. Creatinine Clearance: [>40 ml/min]. Assessment and Plan Maintaining Current Dose?: No Reason for dose change: Trough too low Pharmacist Note Pharmacist Note Date: 09/28/16. Pharm.D. note: 81YO MALE, 55.8KG in WEIGHT, 70" in HEIGHT, CRCL >40ml/min IS ADMITTED WITH HCAP AND A VANCO GOAL 15-20 mcg/ml. AFTER 24HRS HIS VANCO THROUGH THIS EVENING = 13.1 mcg/ml. HIS WEIGHT WAS ALSO INCREASED TO 55.8KG IN [facility]; THEREFORE, WE WILL INCREASE HIS VANCO DOSE TO 1GM STARTING AT 22:00 THIS EVENING AND CONTINUE Q12H 10am/10pm. HE CONTINUES TO BE ON LEVAQUIN 750MG IV Q48H (next due 00:00 09/30/16). WE WILL DRAW A VANCO TR WHEN HE IS AT STEADY STATE. DAYNE, Pharm.D. [facility] Sep 28, 2016 21:41
[2016-09-28 22:00] VITALS: BP 140/63
[2016-09-28] MEDS: VANCOMYCIN HCL 1,000 MG, VIAL MATE ADAPTER 1 EACH in D5W 250 ML IV SCH (22:08)
[2016-09-29 06:00] VITALS: BP 116/52
[2016-09-29] MEDS: NS 1,000 ML IV SCH ×2 (06:43→21:00)
[2016-09-29 07:01] LABS: BASO % 0.1 % (0.0-1.0); EOS # 0.1 K/mm3 (0.0-0.50); EOS % 0.7 % (0.0-3.0); LARGE UNSTAINED CELL # 0.1 K/mm3 (0.0-0.4); LARGE UNSTAINED CELL % 0.9 % (0.0-4.0); LYMPH # 0.7 K/mm3 (1.5-4.5); LYMPH % 9.4 % (24.0-44.0); MEAN CORPUSCULAR HEMOGLOBIN 34.4 pg (27.0-33.0); MEAN CORPUSCULAR HGB CONC 33.4 g/dl (32.0-36.5); MEAN CORPUSCULAR VOLUME 103.1 fl (80.0-96.0); MONO # 0.4 K/mm3 (0.0-0.8); MONO % 4.8 % (0.0-5.0); NEUTROPHILS # 6.5 K/mm3 (1.8-7.7); NEUTROPHILS % 84.1 % (36.0-66.0); PLATELET COUNT, AUTOMATED 307 k/mm3 (150-450); RED CELL DISTRIBUTION WIDTH 12.7 % (11.5-14.5); WHITE BLOOD COUNT 7.7 K/mm3 (4.0-10.0)
[2016-09-29 07:13] LABS: ALBUMIN 1.6 GM/DL (3.2-5.2); ALBUMIN/GLOBULIN RATIO 0.43 (1.00-1.93); ALKALINE PHOSPHATASE 120 U/L (45-117); ALT/SGPT 75 U/L (12-78); ANION GAP 4 MEQ/L (8-16); AST/SGOT 81 U/L (15-37); BILIRUBIN,TOTAL 0.6 MG/DL (0.2-1.0); BLOOD UREA NITROGEN 16 MG/DL (7-18); CALCIUM LEVEL 7.9 MG/DL (8.8-10.2); CARBON DIOXIDE LEVEL 32 MEQ/L (21-32); CHLORIDE LEVEL 109 MEQ/L (98-107); CREATININE FOR GFR 0.66 MG/DL (0.70-1.30); GLOMERULAR FILTRATION RATE > 60.0 (>35); GLUCOSE, FASTING 89 MG/DL (83-110); POTASSIUM SERUM 3.5 MEQ/L (3.5-5.1); SODIUM LEVEL 145 MEQ/L (136-145); TOTAL PROTEIN 5.3 GM/DL (6.4-8.2)
[2016-09-29] MEDS: VANCOMYCIN HCL 1,000 MG, VIAL MATE ADAPTER 1 EACH in D5W 250 ML IV SCH ×2 (09:37→22:24)
[2016-09-29 14:00] VITALS: BP 141/66
--- NOTE | 2016-09-29 15:31 | IPNPDOC ---
Text Note Date of Service The patient was seen on 09/29/16 at 15:28. NOTE Subjective: Pt is nonverbal. states he's tolerating PO, and doing well. Objective: Vitals: (see below) General: No acute distress, laying comfortably in bed. HEENT: Moist mucous membranes. Neck: No JVD or lymphadenopathy. Cardiac: RRR, No murmurs Pulm: Diminished breath sounds and crackles at the bases b/l. No wheezing or rhonchi Abd: NT/ND + BS Ext: No edema or cyanosis Awake, expressive aphasia, Following commands, moving both arms, LE contracted. b/l heel pressure ulcers healing with bandage intact. Minimal participation with neuro exam. Labs (see below) Images: CXR 09/27/16 Impression: Bibasilar interstitial infiltrates and/or atelectatic changes. Patchy interstitial changes in the right upper lobe in para hilar location. Differential diagnosis can include pneumonitis, atelectasis. Right parahilar mass is much less likely, and was not present on prior study 07/15/16. Recommend follow-up to insure complete resolution. Assessment/Plan 1. HCAP - on Vanc/Levaquin. Trend CRP, WBC. Blood cx/sputum cx pending. Cont IVF. Mild leukocytosis. 2. 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 I have spoken with Dr. Deras - states no contraindication for anti-platelets agents. is agreeable to ASA and statin , which will be started today. 3. Pressure ulcers noted on admission on right hip, and 2cm - follows with Dr. Garcia. Wound care on board. Will need outpt f/u with Dr. Garcia. 4. HTN - diet controlled. Stable. DVT prophy: LEVI/SCDs. Will be working with PT and case management is working to ensure a safe home discharge. VS,Fishbone, I+O VS, Fishbone, I+O Laboratory Tests 09/29/16 06:27 Calcium Level 7.9 L, Aspartate Amino Transf (AST/SGOT) 81 H, Alanine Aminotransferase (ALT/SGPT) 75, Alkaline Phosphatase 120 H, Total Bilirubin 0.6 , Total Protein 5.3 L, Albumin 1.6 L, Red Blood Count 2.96 L, Mean Corpuscular Volume 103.1 H, Mean Corpuscular Hemoglobin 34.4 H, Mean Corpuscular Hemoglobin Concent 33.4, Red Cell Distribution Width 12.7, Neutrophils (%) (Auto) 84.1 H, Lymphocytes (%) (Auto) 9.4 L, Monocytes (%) (Auto) 4.8, Eosinophils (%) (Auto) 0.7, Basophils (%) (Auto) 0.1, Neutrophils # (Auto) 6.5, Lymphocytes # (Auto) 0.7 L, Monocytes # (Auto) 0.4, Eosinophils # (Auto) 0.1, Basophils # (Auto) 0.0 Vital Signs Date Time Temp Pulse Resp B/P Pulse Ox O2 Delivery O2 Flow Rate FiO2 09/29/16 09:23 Room Air 09/29/16 06:00 96.4 59 17 116/52 97 09/28/16 08:05 2.0 I&O- Last 24 Hours up to 6 AM 09/29/16 06:00 Intake Total 2620 ml Balance 2620 ml KIRA ERAZO MD Sep 29, 2016 15:30
[2016-09-29] MEDS: ASPIRIN 81 MG ENTERIC TAB PO SCH (16:04)
[2016-09-29] MEDS: ATORVASTATIN 20 MG TAB PO SCH (16:04)
[2016-09-29] MEDS: ACETAMINOPHEN TAB 650MG DOSE (2X325MG) PO PRN (16:05)
--- NOTE | 2016-09-29 21:05 | EDDOCDS ---
Nurse's Notes [facility] Name: Conrado Mercado Age: 81 yrs Sex: Male : 1935 Arrival Date: 09/27/2016 Time: 07:36 Bed 15 Private MD: Diagnosis: Pneumonia, unspecified organism Presentation: 09/27 07:44 Presenting complaint: EMS states: SO called concerned pt felt flushed this morning, SO jjr reports upper respiratory symptoms over the last few days. Adult Sepsis Screening: The patient does not have new or worsening altered mentation. Patient's respiratory rate is less than 22. Systolic blood pressure is greater than 100. Patient has a qSOFA score of 0- Negative Sepsis Screen. Suicide/Homicide risk assessment- the patient denies having any suicidal and/or homicidal ideations and does not present with any other emotional, behavioral or mental health complaints. 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 Transition of care: patient was not received from another setting of care. 07:44 Acuity: MARINA Level 3 r 07:44 Method Of Arrival: Ambulance jjr Triage Assessment: 08:09 General: Appears in no apparent distress, slender. Cardiovascular: Rhythm is sinus jr rhythm. Respiratory: Airway is patent Respiratory effort is even, unlabored, Respiratory pattern is regular. Derm: Skin is pink, warm & dry. 20:02 Pain: Unable to use pain scale. Does not appear to understand pain scale. ms18 Historical: - Allergies: no known allergies; - Home Meds: 1. 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 Patient is speech impaired. - Family history: Not pertinent. - : The pt / caregiver states he / she is not on anticoagulants. Home medication list is obtained from family members. - Exposure Risk Screening:: None identified. Screenin:45 Fall Risk. jjr 08:11 Screening information is obtained from family members. Fall risk: At risk due to age, jjr The following interventions are performed due to a positive Fall Risk Screen: added to special handling. Assistance ADL's: Requires assistance with meal preparation, this assistance is provided by family members, housework, assistance is provided by family members, medication administration, assistance is provided by family members. Abuse/DV Screen: The patient / caregiver reports he/she is: not in a situation that causes fear, pain or injury. Nutritional screening: No deficits noted. Advance Directives: Currently, there is a health care proxy, Patricia Mercado. There is an active DNR order but there is no copy available at this time. home support is adequate. Assessment: 08:11 General: Appears in no apparent distress. jjr 08:25 Adult Sepsis Screening: Accepted Exclusions- The Sepsis Protocol has been ordered by jr the Provider. 09:26 General: Appears to be sleeping. Cardiovascular: Rhythm is sinus rhythm. Respiratory: jjr Airway is patent Respiratory effort is even, unlabored, Respiratory pattern is regular. Derm: Skin is pink, warm & dry. 10:17 General: Appears to be sleeping. Behavior is drowsy. Cardiovascular: Rhythm is sinus jjr bradycardia. Respiratory: Airway is patent Respiratory effort is even, unlabored, Respiratory pattern is regular. Derm: Skin is pink, warm & dry. 11:25 General: Appears in no apparent distress, pt non verbal not nodding head to questions jjr either, pt's left leg contracted, pt's brief changed. Cardiovascular: Rhythm is sinus rhythm. Respiratory: Airway is patent Respiratory effort is even, unlabored, Respiratory pattern is regular, congested cough. Derm: Skin is pink, warm & dry. 12:12 General: Appears in no apparent distress, sitting quietly on stretcher with and jjr dgtr attentive at bedside. Respiratory: Airway is patent Respiratory effort is even, unlabored, Respiratory pattern is regular. Derm: Skin is pink, warm & dry. 14:04 General: Appears in no apparent distress. Cardiovascular: Rhythm is sinus rhythm. jjr Respiratory: Airway is patent Respiratory effort is even, unlabored, Respiratory pattern is regular. Derm: Skin is pink, warm & dry. 15:20 Reassessment: Patient appears in no apparent distress at this time. Cardiovascular: tm5 Rhythm is sinus rhythm No ectopy. Respiratory: Airway is patent Respiratory effort is even, unlabored, Respiratory pattern is regular. Derm: Skin is pink, warm & dry. 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 18:55 General: Pt in no acute distress. Family at bedside. Will continue to monitor pt. ms18 19:54 General: Spoke with Eliane in [facility] and they are ready for the pt at this time. ms18 General: Appears in no apparent distress, comfortable, Behavior is cooperative, quiet. Respiratory: Airway is patent Respiratory effort is even, unlabored. Derm: Skin is pink, warm & dry. 20:03 Neurological: Level of Consciousness is awake, alert, Oriented to none. ms18 Vital Signs: 07:46 BP 130 / 70; Pulse 69; Resp 18; Temp 98.9(TE); Pulse Ox 96% on R/A; Weight 54.6 kg (M); ct3 Height 5 ft. 10 in. (177.80 cm) (R); 07:58 BP 109 / 54 (auto/); jjr 07:58 Pulse 68 MON; Pulse Ox 90% ; jjr 08:13 BP 96 / 50 (auto/); jjr 08:13 Pulse 64 MON; Resp 18; Pulse Ox 93% on R/A; jjr 08:28 BP 100 / 59 (auto/); jjr 08:28 Pulse 58 MON; Pulse Ox 93% ; jjr 09:05 Pulse 88 MON; Pulse Ox 96% ; jjr 09:22 BP 97 / 53 (auto/); jjr 09:22 Pulse 60 MON; Resp 18; Pulse Ox 96% on R/A; jjr 09:43 BP 104 / 51 (auto/); jjr 09:43 Pulse 58 MON; Pulse Ox 89% ; jjr 09:49 Pulse 58 MON; Pulse Ox 90% ; jjr 09:50 Pulse 62 MON; Pulse Ox 88% ; jjr 09:55 Pulse 56 MON; Pulse Ox 97% on 2 lpm NC; jjr 10:43 BP 111 / 64 (auto/); jjr 10:43 Pulse 62 MON; Resp 18; Pulse Ox 97% on R/A; jjr 11:13 BP 119 / 60 (auto/); jjr 11:13 Pulse 62 MON; Resp 18; Pulse Ox 97% on 2 lpm NC; jjr 11:43 BP 97 / 52 (auto/); jjr 11:43 Pulse 62 MON; Resp 20; Pulse Ox 97% on 2 lpm NC; jjr 12:13 BP 100 / 50 (auto/); jjr 12:13 Pulse 64 MON; Pulse Ox 97% ; jjr 12:14 Temp 98.6(TE); jjr 12:43 BP 113 / 53 (auto/); jjr 12:43 Pulse 66 MON; Pulse Ox 98% ; jjr 13:13 BP 113 / 53 (auto/); jjr 13:13 Pulse 70 MON; Pulse Ox 96% ; jjr 13:43 BP 107 / 72 (auto/); jjr 13:43 Pulse 68 MON; Pulse Ox 96% ; jjr 14:13 BP 120 / 55 (auto/); tm5 14:13 Pulse 70 MON; Pulse Ox 97% on 2 lpm NC; tm5 14:43 BP 108 / 53 (auto/); tm5 14:43 Pulse 70 MON; Pulse Ox 98% ; tm5 15:13 BP 122 / 60 (auto/); tm5 15:13 Pulse 62 MON; Resp 20; Pulse Ox 98% on 2 lpm NC; Pain 0/10; tm5 16:13 BP 109 / 68 (auto/); tm5 16:13 Pulse 64 MON; Resp 18 S; Pulse Ox 96% on 2 lpm NC; Pain 0/10; tm5 16:43 BP 114 / 58 (auto/); ms18 16:43 Pulse 64 MON; Pulse Ox 87% ; ms18 17:13 BP 116 / 74 (auto/); Pulse 60; Resp 18; Temp 96.6(T); Pulse Ox 98% on 2 lpm NC; jjr 17:43 BP 115 / 56 (auto/); jjr 17:43 Pulse 58 MON; Resp 18; Pulse Ox 97% on 2 lpm NC; jjr 20:02 BP 123 / 62; Pulse 80; Resp 18; Temp 98.8(TE); Pulse Ox 98% ; ms18 07:46 Body Mass Index 17.27 (54.60 kg, 177.80 cm) ct3 Vitals: 19:58 Log In Time N/A - ambulance arrival. ms18 ED Course: 07:37 Patient visited by Jessika Stockton, Birdcage Assembler. deg 07:37 Patient moved to Waiting deg 07:37 Patient moved to 15 deg 07:45 Triage Initiated jjr 07:46 Accompanied by Family Member, Patient has correct armband on for positive ct3 identification. Placed in gown. Bed in low position. Call light in reach. Side rails up X2. youth nutritional monitor on. Pulse ox on. NIBP on. 07:47 Patient visited by Bea Bobby PCA. ct3 08:07 Victor M Del Valle MD is Attending Physician. br1 08:11 The patient / caregiver is instructed regarding the plan of care and ED course. jjr 08:13 Patient visited by Maday Guerrero RN. jjr 08:16 Patient visited by Victor M Del Valle MD. br1 08:39 -Influenza A&B Rapid Antigen - Nose Sent. jmk 08:39 Lactic Acid (Moffett tube on ice) Sent. jmk 08:39 -Blood Culture Sent. jmk 08:39 Basic Metabolic Profile Sent. jmk 08:39 CBC with Diff Sent. jmk 08:39 Cardiac Injury Profile Sent. jmk 08:39 Troponin Sent. jmk 08:54 EKG done. (by ED staff). Reviewed by Victor M Del Valle MD. ct3 09:01 Patient visited by Bea Bobby PCA. ct3 09:06 Inserted saline lock: 20 gauge in right antecubital area and blood collected. jjr Labs/Blood culture drawn. 09:26 Patient visited by Maday Guerrero RN. jjr 09:41 [facility] Payment Agreement was scanned into [employer] and attached to record. lg 09:47 Chest, 2 View (pa\E\lat) Returned. EDMS 09:57 O2 via nasal cannula \T\ 2L/min. jjr 10:17 Patient visited by Maday Guerrero RN. jjr 11:25 Patient visited by Maday Guerrero RN. jjr 11:58 Patient visited by Nelda Frank PCA. jlf 12:13 Patient visited by Maday Guerrero RN. jjr 12:50 Patient visited by Nelda Frank PCA. jlf 12:53 Patient visited by Bea Bobby PCA. ct3 12:53 Diet: Patient given regular meal. ct3 13:22 Patient visited by Nelda Frank PCA. jlf 14:03 Patient visited by Victor M Del Valle MD. br1 14:06 Curtis Ceci is Hospitalizing Provider. br1 14:24 Patient visited by Bianca Trujillo,ÓSCAR. tm5 14:40 Patient visited by Bianca Trujillo,ÓSCAR. tm5 14:40 Visited by Hospitalist at bedside for admission eval. tm5 16:15 Patient visited by Bianca Trujillo,ÓSCAR. tm5 16:43 Property :Personal belongings accompany Pt. ms18 16:43 No procedures done that require assistance. ms18 18:00 Patient visited by Maday Guerrero RN. jjr 09/28 10:37 ECG/EKG was scanned into [employer] and attached to record. gb 10:37 T-Sheet-- Draft Copy was scanned into [employer] and attached to record. gb Administered Medications: 09/27 14:25 Drug: Piperacillin-Tazobactam 3.375 grams [piperacillin-tazobactam 3.375 gram tm5 intravenous solution] Route: IVPB; Infused Over: 30 mins; Site: right antecubital; 15:13 Follow up: IV Status: Completed infusion; IV Intake: 50ml tm5 15:14 Drug: vancomycin 1 grams [vancomycin 1,000 mg intravenous injection] {Note: given IVPB tm5 in D5W 250cc.} Route: IVPB; Infused Over: 60 mins; Site: right antecubital; 16:15 Follow up: IV Status: Completed infusion; IV Intake: 250ml tm5 Intake: 15:13 IV: 50.00ml; Total: 50.00ml. tm5 16:15 IV: 250.00ml; Total: 300.00ml. tm5 Order Results: Lab Order: Basic Metabolic Profile; SPEC'M 09/27/16 08:37 Test: GLUCOSE, FASTING; Value: 103; Range: 83-110; Units: MG/DL; Status: F Test: BLOOD UREA NITROGEN; Value: 26; Range: 7-18; Abnormal: Above high normal; Units: MG/DL; Status: F Test: CREATININE FOR GFR; Value: 0.91; Range: 0.70-1.30; Units: MG/DL; Status: F Test: GLOMERULAR FILTRATION RATE; Value: > 60.0; Range: >35; Status: F Test: SODIUM LEVEL; Value: 147; Range: 136-145; Abnormal: Above high normal; Units: MEQ/L; Status: F Test: POTASSIUM SERUM; Value: 3.6; Range: 3.5-5.1; Units: MEQ/L; Status: F Test: CHLORIDE LEVEL; Value: 107; Range: 98-107; Units: MEQ/L; Status: F Test: CARBON DIOXIDE LEVEL; Value: 34; Range: 21-32; Abnormal: Above high normal; Units: MEQ/L; Status: F Test: ANION GAP; Value: 6; Range: 8-16; Abnormal: Below low normal; Units: MEQ/L; Status: F Test: CALCIUM LEVEL; Value: 8.9; Range: 8.8-10.2; Units: MG/DL; Status: F Test Note: ; Units are mL/min/1.73 m2 Chronic Kidney Disease Staging per NKF: Stage I & II GFR >=60 Normal to Mildly Decreased Stage III GFR 30-59 Moderately Decreased Stage IV GFR 15-29 Severely Decreased Stage V GFR <15 Very Little GFR Left ESRD GFR <15 on SALES ASSIST[employer] Lab Order: CBC with Diff; SPEC'M 09/27/16 08:37 Test: WHITE BLOOD COUNT; Value: 11.5; Range: 4.0-10.0; Abnormal: Above high normal; Units: K/mm3; Status: F Test: RED BLOOD COUNT; Value: 3.41; Range: 4.30-6.10; Abnormal: Below low normal; Units: M/mm3; Status: F Test: HEMOGLOBIN; Value: 11.6; Range: 14.0-18.0; Abnormal: Below low normal; Units: g/dl; Status: F Test: HEMATOCRIT; Value: 34.8; Range: 42.0-52.0; Abnormal: Below low normal; Units: %; Status: F Test: MEAN CORPUSCULAR VOLUME; Value: 102.0; Range: 80.0-96.0; Abnormal: Above high normal; Units: fl; Status: F Test: MEAN CORPUSCULAR HEMOGLOBIN; Value: 34.0; Range: 27.0-33.0; Abnormal: Above high normal; Units: pg; Status: F Test: MEAN CORPUSCULAR HGB CONC; Value: 33.4; Range: 32.0-36.5; Units: g/dl; Status: F Test: RED CELL DISTRIBUTION WIDTH; Value: 12.8; Range: 11.5-14.5; Units: %; Status: F Test: PLATELET COUNT, AUTOMATED; Value: 296; Range: 150-450; Units: k/mm3; Status: F Test: NEUTROPHILS %; Value: 88.9; Range: 36.0-66.0; Abnormal: Above high normal; Units: %; Status: F Test: LYMPH %; Value: 6.6; Range: 24.0-44.0; Abnormal: Below low normal; Units: %; Status: F Test: MONO %; Value: 3.2; Range: 0.0-5.0; Units: %; Status: F Test: EOS %; Value: 0.2; Range: 0.0-3.0; Units: %; Status: F Test: BASO %; Value: 0.1; Range: 0.0-1.0; Units: %; Status: F Test: LARGE UNSTAINED CELL %; Value: 1.0; Range: 0.0-4.0; Units: %; Status: F Test: NEUTROPHILS #; Value: 10.3; Range: 1.8-7.7; Abnormal: Above high normal; Units: K/mm3; Status: F Test: LYMPH #; Value: 0.8; Range: 1.5-4.5; Abnormal: Below low normal; Units: K/mm3; Status: F Test: MONO #; Value: 0.4; Range: 0.0-0.8; Units: K/mm3; Status: F Test: EOS #; Value: 0.0; Range: 0.0-0.50; Units: K/mm3; Status: F Test: BASO #; Value: 0.0; Range: 0.0-0.2; Units: K/mm3; Status: F Test: LARGE UNSTAINED CELL #; Value: 0.1; Range: 0.0-0.4; Units: K/mm3; Status: F Lab Order: Cardiac Injury Profile; SPEC'M 09/27/16 08:37 Test: CPK CREATINE PHOSPHOKINASE; Value: 742; Range: 39-308; Abnormal: Above high normal; Units: U/L; Status: F Test: CK-MB VALUE MASS; Value: 12.6; Range: 0.0-3.6; Abnormal: Above high normal; Units: NG/ML; Status: F Test: MB/CK RELATIVE INDEX; Value: 1.69; Range: < OR =4; Status: F Test Note: ; DIAGNOSIS CRITERIA MMB ng/ml Relative Index (RI) NON-AMI < or = 5 N/A MOFFETT ZONE > 5 < or = 4 AMI > 5 > 4 Lab Order: Troponin; SPEC'M 09/27/16 08:37 Test: TROPONIN I; Value: 0.03; Range: < 0.10; Units: NG/ML; Status: F Test Note: ; Troponin I Reference Interval for [employer] LOCI: 99th Percentile= 0.00-0.045 ng/ml Risk Stratification: <= 0.10 ng/ml Decreased Risk for Adverse Clinical Events. 0.10-1.50 ng/ml Increased Risk for Adverse Clinical Events. Evaluation of additional criterion and/or repeat testing in 2-6 hours is suggested to rule out myocardial damage. >= 1.50 ng/ml Indicative of Myocardial Injury. Lab Order: Lactic Acid (Moffett tube on ice); SPEC'M 09/27/16 08:37 Test: LACTIC ACID LEVEL, LACTATE; Value: 1.3; Range: 0.4-2.0; Units: MMOL/L; Status: F Lab Order: -Influenza A&B Rapid Antigen - Nose; SPEC'M 09/27/16 08:37 Test: INFLUENZA A RAPID SCR by ICA; Value: INFLUENZA A RESULTS NEGATIVE; Status: F Test: INFLUENZA A RAPID SCR by ICA; Value: Comments:; Status: F Test: INFLUENZA B RAPID SCR by ICA; Value: INFLUENZA B RESULTS NEGATIVE; Status: F Test Note: ; The Influenza test is a direct rapid immunoassay for the qualitative detection of Influenza viral antigen. Cell culture (Viral Culture) testing should be considered to confirm NEGATIVE results and to assist in detecting other viruses that can provide similar clinical symptoms. Please contact the lab within 24 hours ([phone]) if confirmatory testing is desired. Radiology Order: Chest, 2 View (pa\E\lat) Test: Chest, 2 View (pa\E\lat) REASON FOR EXAMINATION: Cough; Semi upright AP and lateral chest radiograph 09/27/2016; ; Indication: Altered mental status; ; Comparison: portable chest 07/15/2016, portable chest 02/24/2015; ; Findings: Atherosclerotic changes are noted in the ectatic thoracic aorta.; Patchy interstitial infiltrates and/or atelectasis are present within lower; lobes. There are also some patchy interstitial changes within the right upper; lobe in parahilar location. There are no pleural effusions.; ; Impression:; ; Bibasilar interstitial infiltrates and/or atelectatic changes.; ; Patchy interstitial changes in the right upper lobe in para hilar location.; Differential diagnosis can include pneumonitis, atelectasis. Right parahilar; mass is much less likely, and was not present on prior study 07/15/16.; Recommend follow-up to insure complete resolution.; ; ; Signed by; Melisa De Jesus MD 09/27/2016 09:31 A; Outcome: 14:06 Decision to Hospitalize by Provider. br1 16:43 Discharge Assessment: patient administered narcotics - no. The following High Risk ms18 Discharge criteria are identified: None. Admitted to Med/Surg accompanied by tech, family with patient, via stretcher, with chart. Condition: stable. No special radiology studies were completed. 20:04 Patient left the ED. ms18 Signatures: Dispatcher [employer] EDMS Jessika Stockton, Birdcage Assembler Unit deg Matthieu Guevara,RN RN Mee Ramirez, Reg Reg gb Eunice Kerr, Reg Reg lg Victor M Del Valle MD MD br1 Maday Guerrero RN RN Bea Clinton, CHILD CARE TEAM LEAD CHILD CARE TEAM LEAD ct3 Nelda Frank, CHILD CARE TEAM LEAD CHILD CARE TEAM LEAD jlf Cheri Freeman RN RN ms18 Bianca Trujillo,ÓSCAR RN tm5 Corrections: (The following items were deleted from the chart) 08:14 08:11 Home Meds: Tylenol 325 mg Oral tab 2 tabs prn; jjr jjr 20:03 19:54 General: Appears in no apparent distress, comfortable, Behavior is drowsy, ms18 ms18 Chart Complete MTDD
--- NOTE | 2016-09-29 21:05 | EDDOCDS ---
Physician Documentation [facility] Name: Conrado Mercado Age: 81 yrs Sex: Male : 1935 Arrival Date: 09/27/2016 Time: 07:36 Bed 15 Private MD: Disposition: 09/27/16 14:06 Hospitalization ordered by Ceci Acevedo for Inpatient Admission. Preliminary diagnosis is Pneumonia, unspecified organism. - Bed requested for [address] [place]. - Status is Inpatient Admission. ms18 - Condition is Stable. - Problem is new. - Symptoms are unchanged. Historical: - Allergies: no known allergies; - Home Meds: 1. 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 Patient is speech impaired. - Family history: Not pertinent. - : The pt / caregiver states he / she is not on anticoagulants. Home medication list is obtained from family members. - Exposure Risk Screening:: None identified. Vital Signs: 09/27 07:46 BP 130 / 70; Pulse 69; Resp 18; Temp 98.9(TE); Pulse Ox 96% on R/A; Weight 54.6 kg / ct3 120.37 lbs (M); Height 5 ft. 10 in. (177.80 cm) (R); 07:58 BP 109 / 54 (auto/); jjr 07:58 Pulse 68 MON; Pulse Ox 90% ; jjr 08:13 BP 96 / 50 (auto/); jjr 08:13 Pulse 64 MON; Resp 18; Pulse Ox 93% on R/A; jjr 08:28 BP 100 / 59 (auto/); jjr 08:28 Pulse 58 MON; Pulse Ox 93% ; jjr 09:05 Pulse 88 MON; Pulse Ox 96% ; jjr 09:22 BP 97 / 53 (auto/); jjr 09:22 Pulse 60 MON; Resp 18; Pulse Ox 96% on R/A; jjr 09:43 BP 104 / 51 (auto/); jjr 09:43 Pulse 58 MON; Pulse Ox 89% ; jjr 09:49 Pulse 58 MON; Pulse Ox 90% ; jjr 09:50 Pulse 62 MON; Pulse Ox 88% ; jjr 09:55 Pulse 56 MON; Pulse Ox 97% on 2 lpm NC; jjr 10:43 BP 111 / 64 (auto/); jjr 10:43 Pulse 62 MON; Resp 18; Pulse Ox 97% on R/A; jjr 11:13 BP 119 / 60 (auto/); jjr 11:13 Pulse 62 MON; Resp 18; Pulse Ox 97% on 2 lpm NC; jjr 11:43 BP 97 / 52 (auto/); jjr 11:43 Pulse 62 MON; Resp 20; Pulse Ox 97% on 2 lpm NC; jjr 12:13 BP 100 / 50 (auto/); jjr 12:13 Pulse 64 MON; Pulse Ox 97% ; jjr 12:14 Temp 98.6(TE); jjr 12:43 BP 113 / 53 (auto/); jjr 12:43 Pulse 66 MON; Pulse Ox 98% ; jjr 13:13 BP 113 / 53 (auto/); jjr 13:13 Pulse 70 MON; Pulse Ox 96% ; jjr 13:43 BP 107 / 72 (auto/); jjr 13:43 Pulse 68 MON; Pulse Ox 96% ; jjr 14:13 BP 120 / 55 (auto/); tm5 14:13 Pulse 70 MON; Pulse Ox 97% on 2 lpm NC; tm5 14:43 BP 108 / 53 (auto/); tm5 14:43 Pulse 70 MON; Pulse Ox 98% ; tm5 15:13 BP 122 / 60 (auto/); tm5 15:13 Pulse 62 MON; Resp 20; Pulse Ox 98% on 2 lpm NC; Pain 0/10; tm5 16:13 BP 109 / 68 (auto/); tm5 16:13 Pulse 64 MON; Resp 18 S; Pulse Ox 96% on 2 lpm NC; Pain 0/10; tm5 16:43 BP 114 / 58 (auto/); ms18 16:43 Pulse 64 MON; Pulse Ox 87% ; ms18 17:13 BP 116 / 74 (auto/); Pulse 60; Resp 18; Temp 96.6(T); Pulse Ox 98% on 2 lpm NC; jjr 17:43 BP 115 / 56 (auto/); jjr 17:43 Pulse 58 MON; Resp 18; Pulse Ox 97% on 2 lpm NC; jjr 20:02 BP 123 / 62; Pulse 80; Resp 18; Temp 98.8(TE); Pulse Ox 98% ; ms18 07:46 Body Mass Index 17.27 (54.60 kg, 177.80 cm) ct3 MDM: 08:17 Mutuel Cashier/Pulse Ox/q 30 min VS ordered. br1 08:17 IV Saline Lock ordered. br1 08:17 Rhythm Strip to chart ordered. br1 08:17 Undress patient appropriately for examination ordered. br1 08:17 -Blood Culture (Adults Only), peripheral from different site, or from device/port/PICC br1 etc. if present ordered. 08:18 -Blood Culture Ordered. EDMS 08:18 Chest, 2 View (pa\E\lat) Ordered. EDMS 08:18 Basic Metabolic Profile Ordered. EDMS 08:18 CBC with Diff Ordered. EDMS 08:18 Cardiac Injury Profile Ordered. EDMS 08:18 Troponin Ordered. EDMS 08:18 Lactic Acid (Moffett tube on ice) Ordered. EDMS 08:18 ECG WITH READING ER PHYS+CARDIAG ordered. EDMS 08:19 -Influenza A&B Rapid Antigen - Nose Ordered. EDMS 08:21 -Blood Culture (Adults Only), peripheral from different site, or from device/port/PICC deg etc. if present complete. 08:22 BLOOD CULTURES Ordered. EDMS 09:07 Financial registration complete. lg 09:41 [facility] [place] Agreement was scanned into [employer] and attached to record. lg 10:15 REGULAR+DIET ordered. EDMS 12:35 REGULAR+DIET ordered. EDMS 13:41 Basic Metabolic Profile Reviewed. br1 13:41 CBC with Diff Reviewed. br1 13:41 Cardiac Injury Profile Reviewed. br1 13:41 Troponin Reviewed. br1 13:41 Lactic Acid (Moffett tube on ice) Reviewed. br1 13:41 -Influenza A&B Rapid Antigen - Nose Reviewed. br1 13:41 Chest, 2 View (pa\E\lat) Reviewed. br1 14:04 BED REQUEST+ADM ordered. EDMS 14:04 vancomycin 1 grams IVPB once over 60 mins; dilute in 250mL of NS or D5W ordered. br1 14:04 Piperacillin-Tazobactam 3.375 grams IVPB once over 30 mins; dilute in 50mL of NS or D5W br1 ordered. 15:03 Admission / Observation Status ordered. EDMS 15:18 REGULAR DIET ordered. EDMS 15:18 OTHER CUSTOM DIETS ordered. EDMS 15:18 PHYSICAL THERAPY EVAL & TREAT ordered. EDMS 15:41 SPUTUM CULTURE AND GRAM STAIN Ordered. EDMS 19:31 CBC WITH DIFFERENTIAL Ordered. EDMS 19:31 COMPLETE COMPHRENSIVE METABOLI Ordered. EDMS 09/28 10:37 ECG/EKG was scanned into [employer] and attached to record. gb 10:37 T-Sheet-- Draft Copy was scanned into [employer] and attached to record. gb Administered Medications: 09/27 14:25 Drug: Piperacillin-Tazobactam 3.375 grams [piperacillin-tazobactam 3.375 gram tm5 intravenous solution] Route: IVPB; Infused Over: 30 mins; Site: right antecubital; 15:13 Follow up: IV Status: Completed infusion; IV Intake: 50ml tm5 15:14 Drug: vancomycin 1 grams [vancomycin 1,000 mg intravenous injection] {Note: given IVPB tm5 in D5W 250cc.} Route: IVPB; Infused Over: 60 mins; Site: right antecubital; 16:15 Follow up: IV Status: Completed infusion; IV Intake: 250ml tm5 Signatures: Dispatcher [employer] EDMS Jessika Stockton, Orthopedic Brace Maker Unit deg Mee Ortiz, Reg Reg gb Eunice Kerr, Reg Reg lg Victor M Del Valle MD MD br1 Maday Guerrero RN RN jjr Cheri Freeman RN RN ms18 Alfredo Potts RN RN mts Matice, Tonya RN tm5 The chart was reviewed and I authenticate all verbal orders and agree with the evaluation and treatment provided.Corrections: (The following items were deleted from the chart) 08:14 08:11 Home Meds: Tylenol 325 mg Oral tab 2 tabs prn; jjr jjr Attachments: 09:41 [facility] Payment Agreement lg 09/28 10:37 ECG/EKG gb 10:37 T-Sheet-- Draft Copy gb Chart Complete MTDD
--- NOTE | 2016-09-29 21:05 | EDDOCDS ---
Physician Documentation [facility] Name: Conrado Mercado Age: 81 yrs Sex: Male : 1935 Arrival Date: 09/27/2016 Time: 07:36 Bed 15 Private MD: Disposition: 09/27/16 14:06 Hospitalization ordered by Ceci Acevedo for Inpatient Admission. Preliminary diagnosis is Pneumonia, unspecified organism. - Bed requested for 4 [place]. - Status is Inpatient Admission. [id number] - Condition is Stable. - Problem is new. - Symptoms are unchanged. Historical: - Allergies: no known allergies; - Home Meds: 1. 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 Patient is speech impaired. - Family history: Not pertinent. - : The pt / caregiver states he / she is not on anticoagulants. Home medication list is obtained from family members. - Exposure Risk Screening:: None identified. Vital Signs: 09/27 07:46 BP 130 / 70; Pulse 69; Resp 18; Temp 98.9(TE); Pulse Ox 96% on R/A; Weight 54.6 kg / ct3 120.37 lbs (M); Height 5 ft. 10 in. (177.80 cm) (R); 07:58 BP 109 / 54 (auto/); jjr 07:58 Pulse 68 MON; Pulse Ox 90% ; jjr 08:13 BP 96 / 50 (auto/); jjr 08:13 Pulse 64 MON; Resp 18; Pulse Ox 93% on R/A; jjr 08:28 BP 100 / 59 (auto/); jjr 08:28 Pulse 58 MON; Pulse Ox 93% ; jjr 09:05 Pulse 88 MON; Pulse Ox 96% ; jjr 09:22 BP 97 / 53 (auto/); jjr 09:22 Pulse 60 MON; Resp 18; Pulse Ox 96% on R/A; jjr 09:43 BP 104 / 51 (auto/); jjr 09:43 Pulse 58 MON; Pulse Ox 89% ; jjr 09:49 Pulse 58 MON; Pulse Ox 90% ; jjr 09:50 Pulse 62 MON; Pulse Ox 88% ; jjr 09:55 Pulse 56 MON; Pulse Ox 97% on 2 lpm NC; jjr 10:43 BP 111 / 64 (auto/); jjr 10:43 Pulse 62 MON; Resp 18; Pulse Ox 97% on R/A; jjr 11:13 BP 119 / 60 (auto/); jjr 11:13 Pulse 62 MON; Resp 18; Pulse Ox 97% on 2 lpm NC; jjr 11:43 BP 97 / 52 (auto/); jjr 11:43 Pulse 62 MON; Resp 20; Pulse Ox 97% on 2 lpm NC; jjr 12:13 BP 100 / 50 (auto/); jjr 12:13 Pulse 64 MON; Pulse Ox 97% ; jjr 12:14 Temp 98.6(TE); jjr 12:43 BP 113 / 53 (auto/); jjr 12:43 Pulse 66 MON; Pulse Ox 98% ; jjr 13:13 BP 113 / 53 (auto/); jjr 13:13 Pulse 70 MON; Pulse Ox 96% ; jjr 13:43 BP 107 / 72 (auto/); jjr 13:43 Pulse 68 MON; Pulse Ox 96% ; jjr 14:13 BP 120 / 55 (auto/); tm5 14:13 Pulse 70 MON; Pulse Ox 97% on 2 lpm NC; tm5 14:43 BP 108 / 53 (auto/); tm5 14:43 Pulse 70 MON; Pulse Ox 98% ; tm5 15:13 BP 122 / 60 (auto/); tm5 15:13 Pulse 62 MON; Resp 20; Pulse Ox 98% on 2 lpm NC; Pain 0/10; tm5 16:13 BP 109 / 68 (auto/); tm5 16:13 Pulse 64 MON; Resp 18 S; Pulse Ox 96% on 2 lpm NC; Pain 0/10; tm5 16:43 BP 114 / 58 (auto/); ms18 16:43 Pulse 64 MON; Pulse Ox 87% ; ms18 17:13 BP 116 / 74 (auto/); Pulse 60; Resp 18; Temp 96.6(T); Pulse Ox 98% on 2 lpm NC; jjr 17:43 BP 115 / 56 (auto/); jjr 17:43 Pulse 58 MON; Resp 18; Pulse Ox 97% on 2 lpm NC; jjr 20:02 BP 123 / 62; Pulse 80; Resp 18; Temp 98.8(TE); Pulse Ox 98% ; ms18 07:46 Body Mass Index 17.27 (54.60 kg, 177.80 cm) ct3 MDM: 08:17 Submarine Worker/Pulse Ox/q 30 min VS ordered. br1 08:17 IV Saline Lock ordered. br1 08:17 Rhythm Strip to chart ordered. br1 08:17 Undress patient appropriately for examination ordered. br1 08:17 -Blood Culture (Adults Only), peripheral from different site, or from device/port/PICC br1 etc. if present ordered. 08:18 -Blood Culture Ordered. EDMS 08:18 Chest, 2 View (pa\E\lat) Ordered. EDMS 08:18 Basic Metabolic Profile Ordered. EDMS 08:18 CBC with Diff Ordered. EDMS 08:18 Cardiac Injury Profile Ordered. EDMS 08:18 Troponin Ordered. EDMS 08:18 Lactic Acid (Moffett tube on ice) Ordered. EDMS 08:18 ECG WITH READING ER PHYS+CARDIAG ordered. EDMS 08:19 -Influenza A&B Rapid Antigen - Nose Ordered. EDMS 08:21 -Blood Culture (Adults Only), peripheral from different site, or from device/port/PICC deg etc. if present complete. 08:22 BLOOD CULTURES Ordered. EDMS 09:07 Financial registration complete. lg 09:41 [facility] [place] Agreement was scanned into [employer] and attached to record. lg 10:15 REGULAR+DIET ordered. EDMS 12:35 REGULAR+DIET ordered. EDMS 13:41 Basic Metabolic Profile Reviewed. br1 13:41 CBC with Diff Reviewed. br1 13:41 Cardiac Injury Profile Reviewed. br1 13:41 Troponin Reviewed. br1 13:41 Lactic Acid (Moffett tube on ice) Reviewed. br1 13:41 -Influenza A&B Rapid Antigen - Nose Reviewed. br1 13:41 Chest, 2 View (pa\E\lat) Reviewed. br1 14:04 BED REQUEST+ADM ordered. EDMS 14:04 vancomycin 1 grams IVPB once over 60 mins; dilute in 250mL of NS or D5W ordered. br1 14:04 Piperacillin-Tazobactam 3.375 grams IVPB once over 30 mins; dilute in 50mL of NS or D5W br1 ordered. 15:03 Admission / Observation Status ordered. EDMS 15:18 REGULAR DIET ordered. EDMS 15:18 OTHER CUSTOM DIETS ordered. EDMS 15:18 PHYSICAL THERAPY EVAL & TREAT ordered. EDMS 15:41 SPUTUM CULTURE AND GRAM STAIN Ordered. EDMS 19:31 CBC WITH DIFFERENTIAL Ordered. EDMS 19:31 COMPLETE COMPHRENSIVE METABOLI Ordered. EDMS 09/28 10:37 ECG/EKG was scanned into [employer] and attached to record. gb 10:37 T-Sheet-- Draft Copy was scanned into [employer] and attached to record. gb Administered Medications: 09/27 14:25 Drug: Piperacillin-Tazobactam 3.375 grams [piperacillin-tazobactam 3.375 gram tm5 intravenous solution] Route: IVPB; Infused Over: 30 mins; Site: right antecubital; 15:13 Follow up: IV Status: Completed infusion; IV Intake: 50ml tm5 15:14 Drug: vancomycin 1 grams [vancomycin 1,000 mg intravenous injection] {Note: given IVPB tm5 in D5W 250cc.} Route: IVPB; Infused Over: 60 mins; Site: right antecubital; 16:15 Follow up: IV Status: Completed infusion; IV Intake: 250ml tm5 Signatures: Dispatcher [employer] EDMS Jessika Stockton, Carton Wrapper Unit deg Mee Ortiz, Reg Reg gb Eunice Kerr, Reg Reg lg Victor M Del Valle MD MD br1 Maday Guerrero RN RN jjr Cheri Freeman RN RN ms18 Alfredo Potts RN RN mts Matice, Tonya RN tm5 The chart was reviewed and I authenticate all verbal orders and agree with the evaluation and treatment provided.Corrections: (The following items were deleted from the chart) 08:14 08:11 Home Meds: Tylenol 325 mg Oral tab 2 tabs prn; jjr jjr Attachments: 09:41 [facility] [place] Payment Agreement lg 09/28 10:37 ECG/EKG gb 10:37 T-Sheet-- Draft Copy gb Chart Complete MTDD
[2016-09-29 22:00] VITALS: BP 125/75
[2016-09-30] MEDS: LevoFLOXacin 750 MG in APPROPRIATE DILUENT 1 EA IV SCH (00:02)
[2016-09-30 06:00] VITALS: BP 111/58
[2016-09-30 06:34] LABS: BASO % 0.1 % (0.0-1.0); EOS # 0.1 K/mm3 (0.0-0.50); EOS % 0.6 % (0.0-3.0); LARGE UNSTAINED CELL # 0.1 K/mm3 (0.0-0.4); LARGE UNSTAINED CELL % 0.9 % (0.0-4.0); LYMPH # 0.7 K/mm3 (1.5-4.5); LYMPH % 7.1 % (24.0-44.0); MEAN CORPUSCULAR HEMOGLOBIN 35.5 pg (27.0-33.0); MEAN CORPUSCULAR HGB CONC 34.6 g/dl (32.0-36.5); MEAN CORPUSCULAR VOLUME 102.6 fl (80.0-96.0); MONO # 0.3 K/mm3 (0.0-0.8); MONO % 3.5 % (0.0-5.0); NEUTROPHILS # 8.3 K/mm3 (1.8-7.7); NEUTROPHILS % 87.8 % (36.0-66.0); PLATELET COUNT, AUTOMATED 353 k/mm3 (150-450); RED CELL DISTRIBUTION WIDTH 12.6 % (11.5-14.5); WHITE BLOOD COUNT 9.5 K/mm3 (4.0-10.0)
[2016-09-30 06:51] LABS: ALBUMIN 1.6 GM/DL (3.2-5.2); ALKALINE PHOSPHATASE 119 U/L (45-117); ALT/SGPT 73 U/L (12-78); ANION GAP 6 MEQ/L (8-16); AST/SGOT 64 U/L (15-37); BILIRUBIN,TOTAL 0.5 MG/DL (0.2-1.0); BLOOD UREA NITROGEN 17 MG/DL (7-18); CALCIUM LEVEL 7.5 MG/DL (8.8-10.2); CARBON DIOXIDE LEVEL 30 MEQ/L (21-32); CHLORIDE LEVEL 108 MEQ/L (98-107); CREATININE FOR GFR 0.65 MG/DL (0.70-1.30); GLOMERULAR FILTRATION RATE > 60.0 (>35); GLUCOSE, FASTING 99 MG/DL (83-110); POTASSIUM SERUM 3.9 MEQ/L (3.5-5.1); SODIUM LEVEL 144 MEQ/L (136-145); TOTAL PROTEIN 4.8 GM/DL (6.4-8.2)
[2016-09-30] MEDS: ASPIRIN 81 MG ENTERIC TAB PO SCH (08:53)
[2016-09-30] MEDS: ATORVASTATIN 20 MG TAB PO SCH (08:53)
[2016-09-30] MEDS: SANTYL OINT 30GM TOP SCH (08:53)
[2016-09-30] MEDS: VANCOMYCIN HCL 1,000 MG, VIAL MATE ADAPTER 1 EACH in D5W 250 ML IV SCH (10:29)
[2016-09-30] MEDS: NS 1,000 ML IV SCH ×2 (10:30→23:21)
[2016-09-30 14:00] VITALS: BP 98/51
--- NOTE | 2016-09-30 16:05 | IPNPDOC ---
Text Note Date of Service The patient was seen on 09/30/16 at 15:59. NOTE Subjective: Pt is nonverbal. No acute changes overnight. Objective: Vitals: (see below) General: No acute distress, laying comfortably in bed. HEENT: Moist mucous membranes. Neck: No JVD or lymphadenopathy. Cardiac: RRR, No murmurs Pulm: Diminished breath sounds and crackles at the bases b/l. No wheezing or rhonchi Abd: NT/ND + BS Ext: No edema or cyanosis Awake, expressive aphasia, Following commands, moving both arms, LE contracted. b/l heel pressure ulcers healing with bandage intact. Minimal participation with neuro exam. Labs (see below) Images: CXR 09/27/16 Impression: Bibasilar interstitial infiltrates and/or atelectatic changes. Patchy interstitial changes in the right upper lobe in para hilar location. Differential diagnosis can include pneumonitis, atelectasis. Right parahilar mass is much less likely, and was not present on prior study 07/15/16. Recommend follow-up to insure complete resolution. Assessment/Plan 1. HCAP - on Vanc/Levaquin -->Change to augmentin. Trend CRP, WBC. Blood cxnegative thus far. 2. 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 I have spoken with Dr. Deras - states no contraindication for anti-platelets agents. is agreeable to ASA and statin , which will be started today. 3. Pressure ulcers noted on admission on right hip, and 2cm - follows with Dr. Garcia. Wound care on board. Will need outpt f/u with Dr. Garcia. 4. HTN - diet controlled. Stable. DVT prophy: LEVI/SCDs. Will be working with PT and case management is working to ensure a safe home discharge. VS,Fishbone, I+O VS, Fishbone, I+O Laboratory Tests 09/30/16 06:15 Calcium Level 7.5 L, Aspartate Amino Transf (AST/SGOT) 64 H, Alanine Aminotransferase (ALT/SGPT) 73, Alkaline Phosphatase 119 H, Total Bilirubin 0.5 , Total Protein 4.8 L, Albumin 1.6 L, Red Blood Count 2.79 L, Mean Corpuscular Volume 102.6 H, Mean Corpuscular Hemoglobin 35.5 H, Mean Corpuscular Hemoglobin Concent 34.6, Red Cell Distribution Width 12.6, Neutrophils (%) (Auto) 87.8 H, Lymphocytes (%) (Auto) 7.1 L, Monocytes (%) (Auto) 3.5, Eosinophils (%) (Auto) 0.6, Basophils (%) (Auto) 0.1, Neutrophils # (Auto) 8.3 H, Lymphocytes # (Auto) 0.7 L, Monocytes # (Auto) 0.3, Eosinophils # (Auto) 0.1, Basophils # (Auto) 0.0 Vital Signs Date Time Temp Pulse Resp B/P Pulse Ox O2 Delivery O2 Flow Rate FiO2 09/30/16 09:00 Room Air 09/30/16 06:00 97.2 75 20 111/58 96 09/28/16 08:05 2.0 I&O- Last 24 Hours up to 6 AM 09/30/16 05:59 Intake Total 1690 ml Output Total 0 ml Balance 1690 ml KIRA ERAZO MD Sep 30, 2016 16:05
[2016-09-30] MEDS: AUGMENTIN 875 MG TAB PO SCH (20:05)
[2016-09-30 20:10] VITALS: BP 123/57
[2016-10-01 05:35] VITALS: BP 97/49
[2016-10-01 07:13] LABS: BASO % 0.2 % (0.0-1.0); EOS # 0.1 K/mm3 (0.0-0.50); EOS % 0.7 % (0.0-3.0); LARGE UNSTAINED CELL # 0.1 K/mm3 (0.0-0.4); LARGE UNSTAINED CELL % 0.9 % (0.0-4.0); LYMPH # 0.9 K/mm3 (1.5-4.5); LYMPH % 8.5 % (24.0-44.0); MEAN CORPUSCULAR HEMOGLOBIN 34.8 pg (27.0-33.0); MEAN CORPUSCULAR HGB CONC 33.6 g/dl (32.0-36.5); MEAN CORPUSCULAR VOLUME 103.6 fl (80.0-96.0); MONO # 0.5 K/mm3 (0.0-0.8); MONO % 4.7 % (0.0-5.0); NEUTROPHILS # 8.9 K/mm3 (1.8-7.7); PLATELET COUNT, AUTOMATED 393 k/mm3 (150-450); RED CELL DISTRIBUTION WIDTH 12.6 % (11.5-14.5); WHITE BLOOD COUNT 10.5 K/mm3 (4.0-10.0)
[2016-10-01 07:21] LABS: ALBUMIN 1.5 GM/DL (3.2-5.2); ALBUMIN/GLOBULIN RATIO 0.41 (1.00-1.93); ALKALINE PHOSPHATASE 127 U/L (45-117); ALT/SGPT 76 U/L (12-78); ANION GAP 5 MEQ/L (8-16); AST/SGOT 71 U/L (15-37); BILIRUBIN,TOTAL 0.3 MG/DL (0.2-1.0); BLOOD UREA NITROGEN 19 MG/DL (7-18); CALCIUM LEVEL 7.7 MG/DL (8.8-10.2); CARBON DIOXIDE LEVEL 29 MEQ/L (21-32); CHLORIDE LEVEL 112 MEQ/L (98-107); CREATININE FOR GFR 0.77 MG/DL (0.70-1.30); GLOMERULAR FILTRATION RATE > 60.0 (>35); GLUCOSE, FASTING 96 MG/DL (83-110); SODIUM LEVEL 146 MEQ/L (136-145); TOTAL PROTEIN 5.2 GM/DL (6.4-8.2)
[2016-10-01] MEDS: SANTYL OINT 30GM TOP SCH (10:16)
[2016-10-01] MEDS: AUGMENTIN 875 MG TAB PO SCH ×2 (10:16→21:55)
[2016-10-01] MEDS: ASPIRIN 81 MG ENTERIC TAB PO SCH (10:16)
[2016-10-01] MEDS: ATORVASTATIN 20 MG TAB PO SCH (10:16)
[2016-10-01 14:00] VITALS: BP 124/58
--- NOTE | 2016-10-01 14:40 | IPNPDOC ---
Text Note Date of Service The patient was seen on 10/01/16 at 14:38. NOTE Subjective: Pt is nonverbal. No acute changes overnight. Has not been able to participate with physical therapy. Objective: Vitals: (see below) General: No acute distress, laying comfortably in bed. HEENT: Moist mucous membranes. Neck: No JVD or lymphadenopathy. Cardiac: RRR, No murmurs Pulm: Diminished breath sounds and crackles at the bases b/l. No wheezing or rhonchi Abd: NT/ND + BS Ext: No edema or cyanosis Awake, expressive aphasia, Following commands, moving both arms, LE contracted. b/l heel pressure ulcers healing with bandage intact. Minimal participation with neuro exam. Labs (see below) Images: CXR 09/27/16 Impression: Bibasilar interstitial infiltrates and/or atelectatic changes. Patchy interstitial changes in the right upper lobe in para hilar location. Differential diagnosis can include pneumonitis, atelectasis. Right parahilar mass is much less likely, and was not present on prior study 07/15/16. Recommend follow-up to insure complete resolution. Assessment/Plan 1. HCAP - on Vanc/Levaquin -->Change to augmentin. Trend CRP, WBC. Blood cxnegative thus far. 2. 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 I have spoken with Dr. Deras - states no contraindication for anti-platelets agents. is agreeable to ASA and statin , which will be started today. 3. Pressure ulcers noted on admission on right hip, and 2cm - follows with Dr. Garcia. Wound care on board. Will need outpt f/u with Dr. Garcia. 4. HTN - diet controlled. Stable. DVT prophy: LEVI/SCDs. Has not been able to have significant improvement with PT/OT. Recommendations at this point is a intermediate facility. The states that she will be deciding tomorrow whether to take him home AGAINST MEDICAL ADVICE or pursue a intermediate facility. She understands that the patient has an increased risk of falling, and needs at least a 2 person assist. She is adamant that she will do everything she can before she sends him to a intermediate facility. VS,Fishbone, I+O VS, Fishbone, I+O Laboratory Tests 10/01/16 06:26 Calcium Level 7.7 L, Aspartate Amino Transf (AST/SGOT) 71 H, Alanine Aminotransferase (ALT/SGPT) 76, Alkaline Phosphatase 127 H, Total Bilirubin 0.3 , Total Protein 5.2 L, Albumin 1.5 L, Red Blood Count 2.71 L, Mean Corpuscular Volume 103.6 H, Mean Corpuscular Hemoglobin 34.8 H, Mean Corpuscular Hemoglobin Concent 33.6, Red Cell Distribution Width 12.6, Neutrophils (%) (Auto) 85.0 H, Lymphocytes (%) (Auto) 8.5 L, Monocytes (%) (Auto) 4.7, Eosinophils (%) (Auto) 0.7, Basophils (%) (Auto) 0.2, Neutrophils # (Auto) 8.9 H, Lymphocytes # (Auto) 0.9 L, Monocytes # (Auto) 0.5, Eosinophils # (Auto) 0.1, Basophils # (Auto) 0.0 Vital Signs Date Time Temp Pulse Resp B/P Pulse Ox O2 Delivery O2 Flow Rate FiO2 10/01/16 09:00 Room Air 10/01/16 05:35 99.3 75 19 97/49 94 09/28/16 08:05 2.0 I&O- Last 24 Hours up to 6 AM 10/01/16 06:00 Intake Total 2040 ml Output Total 0 ml Balance 2040 ml KIRA ERAZO MD Oct 01, 2016 14:40
[2016-10-01 21:10] VITALS: BP 118/55
[2016-10-01] MEDS: ACETAMINOPHEN TAB 650MG DOSE (2X325MG) PO PRN (21:55)
[2016-10-02 05:35] VITALS: BP 124/56
[2016-10-02 05:57] LABS: BASO % 0.4 % (0.0-1.0); EOS # 0.1 K/mm3 (0.0-0.50); EOS % 0.7 % (0.0-3.0); LARGE UNSTAINED CELL # 0.1 K/mm3 (0.0-0.4); LYMPH # 0.9 K/mm3 (1.5-4.5); LYMPH % 9.6 % (24.0-44.0); MEAN CORPUSCULAR HEMOGLOBIN 34.5 pg (27.0-33.0); MEAN CORPUSCULAR HGB CONC 33.3 g/dl (32.0-36.5); MEAN CORPUSCULAR VOLUME 103.6 fl (80.0-96.0); MONO # 0.4 K/mm3 (0.0-0.8); MONO % 4.4 % (0.0-5.0); NEUTROPHILS # 7.6 K/mm3 (1.8-7.7); RED CELL DISTRIBUTION WIDTH 12.6 % (11.5-14.5)
[2016-10-02] MEDS ORDERED: LevoFLOXacin 750 MG TABLET PO SCH (06:00)
[2016-10-02 06:05] LABS: ALBUMIN 1.7 GM/DL (3.2-5.2); ALBUMIN/GLOBULIN RATIO 0.44 (1.00-1.93); ALKALINE PHOSPHATASE 143 U/L (45-117); ALT/SGPT 104 U/L (12-78); ANION GAP 7 MEQ/L (8-16); AST/SGOT 98 U/L (15-37); BILIRUBIN,TOTAL 0.5 MG/DL (0.2-1.0); BLOOD UREA NITROGEN 19 MG/DL (7-18); CALCIUM LEVEL 7.8 MG/DL (8.8-10.2); CARBON DIOXIDE LEVEL 30 MEQ/L (21-32); CHLORIDE LEVEL 108 MEQ/L (98-107); CREATININE FOR GFR 0.72 MG/DL (0.70-1.30); GLOMERULAR FILTRATION RATE > 60.0 (>35); GLUCOSE, FASTING 108 MG/DL (83-110); PLATELET COUNT, AUTOMATED 493 k/mm3 (150-450); POTASSIUM SERUM 4.2 MEQ/L (3.5-5.1); SODIUM LEVEL 145 MEQ/L (136-145); TOTAL PROTEIN 5.6 GM/DL (6.4-8.2)
[2016-10-02] MEDS: ASPIRIN 81 MG ENTERIC TAB PO SCH (10:31)
[2016-10-02] MEDS: AUGMENTIN 875 MG TAB PO SCH ×2 (10:31→21:39)
[2016-10-02] MEDS: ATORVASTATIN 20 MG TAB PO SCH (10:31)
[2016-10-02] MEDS: SANTYL OINT 30GM TOP SCH (10:32)
[2016-10-02] MEDS: ACETAMINOPHEN TAB 650MG DOSE (2X325MG) PO PRN ×2 (10:32→21:39)
--- NOTE | 2016-10-02 11:41 | IPNPDOC ---
Text Note Date of Service The patient was seen on 10/02/16 at 11:39. NOTE Subjective: Pt is nonverbal. No acute changes overnight. Has not been able to participate with physical therapy. Objective: Vitals: (see below) General: No acute distress, laying comfortably in bed. HEENT: Moist mucous membranes. Neck: No JVD or lymphadenopathy. Cardiac: RRR, No murmurs Pulm: Diminished breath sounds and crackles at the bases b/l. No wheezing or rhonchi Abd: NT/ND + BS Ext: No edema or cyanosis Awake, expressive aphasia, Following commands, moving both arms, LE contracted. b/l heel pressure ulcers healing with bandage intact. Minimal participation with neuro exam. Labs (see below) Images: CXR 09/27/16 Impression: Bibasilar interstitial infiltrates and/or atelectatic changes. Patchy interstitial changes in the right upper lobe in para hilar location. Differential diagnosis can include pneumonitis, atelectasis. Right parahilar mass is much less likely, and was not present on prior study 07/15/16. Recommend follow-up to insure complete resolution. Assessment/Plan 1. HCAP - on Vanc/Levaquin -->Change to augmentin. Trend CRP, WBC. Blood cxnegative thus far. 2. 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 I have spoken with Dr. Deras - states no contraindication for anti-platelets agents. is agreeable to ASA and statin , which will be started today. 3. Pressure ulcers noted on admission on right hip, and 2cm - follows with Dr. Garcia. Wound care on board. Will need outpt f/u with Dr. Garcia. 4. HTN - diet controlled. Stable. DVT prophy: LEVI/SCDs. Has not been able to have significant improvement with PT/OT. Recommendations at this point is a shelter facility. She understands that the patient has an increased risk of falling, and needs at least a 2 person assist. She is adamant that she will do everything she can before she sends him to a shelter facility. We will need to wait until Tuesday for PFS to assist in the d/ c planning. ? Hospital bed and 24hr care if possible. VS,Fishbone, I+O VS, Fishbone, I+O Laboratory Tests 10/02/16 05:16 Calcium Level 7.8 L, Aspartate Amino Transf (AST/SGOT) 98 H, Alanine Aminotransferase (ALT/SGPT) 104 H, Alkaline Phosphatase 143 H, Total Bilirubin 0.5 #, Total Protein 5.6 L, Albumin 1.7 L, Red Blood Count 2.91 L, Mean Corpuscular Volume 103.6 H, Mean Corpuscular Hemoglobin 34.5 H, Mean Corpuscular Hemoglobin Concent 33.3, Red Cell Distribution Width 12.6, Neutrophils (%) (Auto) 84.0 H, Lymphocytes (%) (Auto) 9.6 L, Monocytes (%) (Auto ) 4.4, Eosinophils (%) (Auto) 0.7, Basophils (%) (Auto) 0.4, Neutrophils # (Auto ) 7.6, Lymphocytes # (Auto) 0.9 L, Monocytes # (Auto) 0.4, Eosinophils # (Auto) 0.1, Basophils # (Auto) 0.0 Vital Signs Date Time Temp Pulse Resp B/P Pulse Ox O2 Delivery O2 Flow Rate FiO2 10/02/16 05:35 98.8 85 16 124/56 95 Room Air 09/28/16 08:05 2.0 I&O- Last 24 Hours up to 6 AM 10/02/16 06:00 Intake Total 2500 ml Output Total 0 ml Balance 2500 ml KIRA ERAZO MD Oct 02, 2016 11:41
[2016-10-02 14:00] VITALS: BP 106/51
[2016-10-02 21:10] VITALS: BP 97/40
[2016-10-02 22:30] VITALS: BP 106/50
[2016-10-03 06:20] VITALS: BP 143/67
[2016-10-03 06:32] LABS: BASO % 0.5 % (0.0-1.0); EOS # 0.1 K/mm3 (0.0-0.50); EOS % 1.6 % (0.0-3.0); LARGE UNSTAINED CELL # 0.1 K/mm3 (0.0-0.4); LARGE UNSTAINED CELL % 1.6 % (0.0-4.0); LYMPH # 1.1 K/mm3 (1.5-4.5); LYMPH % 14.1 % (24.0-44.0); MEAN CORPUSCULAR HEMOGLOBIN 33.5 pg (27.0-33.0); MEAN CORPUSCULAR HGB CONC 32.5 g/dl (32.0-36.5); MEAN CORPUSCULAR VOLUME 103.1 fl (80.0-96.0); MONO # 0.4 K/mm3 (0.0-0.8); NEUTROPHILS % 77.2 % (36.0-66.0); PLATELET COUNT, AUTOMATED 467 k/mm3 (150-450); RED CELL DISTRIBUTION WIDTH 12.5 % (11.5-14.5); WHITE BLOOD COUNT 7.8 K/mm3 (4.0-10.0)
[2016-10-03] MEDS: SANTYL OINT 30GM TOP SCH (06:40)
[2016-10-03 06:43] LABS: ALBUMIN 1.6 GM/DL (3.2-5.2); ALBUMIN/GLOBULIN RATIO 0.43 (1.00-1.93); ALKALINE PHOSPHATASE 133 U/L (45-117); ALT/SGPT 111 U/L (12-78); ANION GAP 7 MEQ/L (8-16); AST/SGOT 93 U/L (15-37); BILIRUBIN,TOTAL 0.3 MG/DL (0.2-1.0); BLOOD UREA NITROGEN 20 MG/DL (7-18); CALCIUM LEVEL 7.8 MG/DL (8.8-10.2); CARBON DIOXIDE LEVEL 29 MEQ/L (21-32); CHLORIDE LEVEL 110 MEQ/L (98-107); CREATININE FOR GFR 0.72 MG/DL (0.70-1.30); GLOMERULAR FILTRATION RATE > 60.0 (>35); GLUCOSE, FASTING 91 MG/DL (83-110); POTASSIUM SERUM 4.4 MEQ/L (3.5-5.1); SODIUM LEVEL 146 MEQ/L (136-145); TOTAL PROTEIN 5.3 GM/DL (6.4-8.2)
[2016-10-03] MEDS: ATORVASTATIN 20 MG TAB PO SCH (09:50)
[2016-10-03] MEDS: ASPIRIN 81 MG ENTERIC TAB PO SCH (09:50)
[2016-10-03] MEDS: AUGMENTIN 875 MG TAB PO SCH ×2 (09:50→20:57)
[2016-10-03] MEDS: ACETAMINOPHEN TAB 650MG DOSE (2X325MG) PO PRN ×2 (09:50→21:03)
[2016-10-03] MEDS: DOCUSATE SOD LIQ 100MG/10ML UDC PO SCH ×2 (11:30→20:57)
[2016-10-03 14:00] VITALS: BP 110/62
--- NOTE | 2016-10-03 14:04 | IPNPDOC ---
Text Note Date of Service The patient was seen on 10/03/16 at 14:03. NOTE Subjective: Pt is nonverbal. No acute changes overnight. Has not been able to participate with physical therapy. Objective: Vitals: (see below) General: No acute distress, laying comfortably in bed. HEENT: Moist mucous membranes. Neck: No JVD or lymphadenopathy. Cardiac: RRR, No murmurs Pulm: Diminished breath sounds and crackles at the bases b/l. No wheezing or rhonchi Abd: NT/ND + BS Ext: No edema or cyanosis Awake, expressive aphasia, Following commands, moving both arms, LE contracted. b/l heel pressure ulcers healing with bandage intact. Minimal participation with neuro exam. Labs (see below) Images: CXR 09/27/16 Impression: Bibasilar interstitial infiltrates and/or atelectatic changes. Patchy interstitial changes in the right upper lobe in para hilar location. Differential diagnosis can include pneumonitis, atelectasis. Right parahilar mass is much less likely, and was not present on prior study 07/15/16. Recommend follow-up to insure complete resolution. Assessment/Plan 1. HCAP - on Vanc/Levaquin -->Change to augmentin. Trend CRP, WBC. Blood cxnegative thus far. 2. 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 I have spoken with Dr. Deras - states no contraindication for anti-platelets agents. is agreeable to ASA and statin , which will be started today. 3. Pressure ulcers noted on admission on right hip, and 2cm - follows with Dr. Garcia. Wound care on board. Will need outpt f/u with Dr. Garcia. 4. HTN - diet controlled. Stable. DVT prophy: LEVI/SCDs. Has not been able to have significant improvement with PT/OT. Recommendations at this point is a fpc facility. She understands that the patient has an increased risk of falling, and needs at least a 2 person assist. She is adamant that she will do everything she can before she sends him to a fpc facility. We will need to wait until Tuesday for PFS to assist in the d/ c planning. ? Hospital bed and 24hr care if possible. VS,Fishbone, I+O VS, Fishbone, I+O Laboratory Tests 10/03/16 06:03 Calcium Level 7.8 L, Aspartate Amino Transf (AST/SGOT) 93 H, Alanine Aminotransferase (ALT/SGPT) 111 H, Alkaline Phosphatase 133 H, Total Bilirubin 0.3, Total Protein 5.3 L, Albumin 1.6 L, Red Blood Count 2.82 L, Mean Corpuscular Volume 103.1 H, Mean Corpuscular Hemoglobin 33.5 H, Mean Corpuscular Hemoglobin Concent 32.5, Red Cell Distribution Width 12.5, Neutrophils (%) (Auto) 77.2 H, Lymphocytes (%) (Auto) 14.1 L, Monocytes (%) ( Auto) 5.0, Eosinophils (%) (Auto) 1.6, Basophils (%) (Auto) 0.5, Neutrophils # ( Auto) 6.0, Lymphocytes # (Auto) 1.1 L, Monocytes # (Auto) 0.4, Eosinophils # ( Auto) 0.1, Basophils # (Auto) 0.0 Vital Signs Date Time Temp Pulse Resp B/P Pulse Ox O2 Delivery O2 Flow Rate FiO2 10/03/16 09:00 Room Air 10/03/16 06:20 97.5 59 19 143/67 97 09/28/16 08:05 2.0 I&O- Last 24 Hours up to 6 AM 10/03/16 06:00 Intake Total 3240 ml Output Total 0 ml Balance 3240 ml KIRA ERAZO MD Oct 03, 2016 14:04
[2016-10-03 22:00] VITALS: BP 93/50
[2016-10-04 06:00] VITALS: BP 97/55
[2016-10-04 06:03] LABS: BASO % 0.4 % (0.0-1.0); EOS # 0.1 K/mm3 (0.0-0.50); LARGE UNSTAINED CELL # 0.1 K/mm3 (0.0-0.4); LARGE UNSTAINED CELL % 1.5 % (0.0-4.0); LYMPH % 11.3 % (24.0-44.0); MEAN CORPUSCULAR HGB CONC 33.2 g/dl (32.0-36.5); MEAN CORPUSCULAR VOLUME 102.3 fl (80.0-96.0); MONO # 0.4 K/mm3 (0.0-0.8); NEUTROPHILS # 7.1 K/mm3 (1.8-7.7); NEUTROPHILS % 80.8 % (36.0-66.0); PLATELET COUNT, AUTOMATED 533 k/mm3 (150-450); RED CELL DISTRIBUTION WIDTH 12.4 % (11.5-14.5); WHITE BLOOD COUNT 8.7 K/mm3 (4.0-10.0)
[2016-10-04 06:28] LABS: ALBUMIN 1.7 GM/DL (3.2-5.2); ALBUMIN/GLOBULIN RATIO 0.43 (1.00-1.93); ALKALINE PHOSPHATASE 155 U/L (45-117); ALT/SGPT 119 U/L (12-78); ANION GAP 6 MEQ/L (8-16); AST/SGOT 94 U/L (15-37); BILIRUBIN,TOTAL 0.3 MG/DL (0.2-1.0); BLOOD UREA NITROGEN 21 MG/DL (7-18); CALCIUM LEVEL 7.9 MG/DL (8.8-10.2); CARBON DIOXIDE LEVEL 30 MEQ/L (21-32); CHLORIDE LEVEL 108 MEQ/L (98-107); GLOMERULAR FILTRATION RATE > 60.0 (>35); GLUCOSE, FASTING 102 MG/DL (83-110); POTASSIUM SERUM 4.3 MEQ/L (3.5-5.1); SODIUM LEVEL 144 MEQ/L (136-145); TOTAL PROTEIN 5.7 GM/DL (6.4-8.2)
[2016-10-04] MEDS ORDERED: SODIUM CHLORIDE 0.9% 1000 ML IV ONE (08:30)
[2016-10-04] MEDS: AUGMENTIN 875 MG TAB PO SCH ×2 (09:03→21:50)
[2016-10-04] MEDS: DOCUSATE SOD LIQ 100MG/10ML UDC PO SCH ×2 (09:03→21:49)
[2016-10-04] MEDS: ASPIRIN 81 MG ENTERIC TAB PO SCH (09:03)
[2016-10-04] MEDS: SANTYL OINT 30GM TOP SCH (09:04)
[2016-10-04] MEDS: ACETAMINOPHEN TAB 650MG DOSE (2X325MG) PO PRN (09:04)
--- NOTE | 2016-10-04 13:50 | IPNPDOC ---
Text Note Date of Service The patient was seen on 10/04/16 at 13:47. NOTE Subjective: Pt is nonverbal. No acute changes overnight. Has not been able to participate with physical therapy. Objective: Vitals: (see below) General: No acute distress, laying comfortably in bed. HEENT: Moist mucous membranes. Neck: No JVD or lymphadenopathy. Cardiac: RRR, No murmurs Pulm: Diminished breath sounds and crackles at the bases b/l. No wheezing or rhonchi Abd: NT/ND + BS Ext: No edema or cyanosis Awake, expressive aphasia, Following commands, moving both arms, LE contracted. b/l heel pressure ulcers healing with bandage intact. Minimal participation with neuro exam. Labs (see below) Images: CXR 09/27/16 Impression: Bibasilar interstitial infiltrates and/or atelectatic changes. Patchy interstitial changes in the right upper lobe in para hilar location. Differential diagnosis can include pneumonitis, atelectasis. Right parahilar mass is much less likely, and was not present on prior study 07/15/16. Recommend follow-up to insure complete resolution. Assessment/Plan 1. HCAP - on Vanc/Levaquin -->Change to augmentin. Trend CRP, WBC. Blood cxnegative thus far. 2. 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 I have spoken with Dr. Deras - states no contraindication for anti-platelets agents. is agreeable to ASA and statin. 3. Pressure ulcers noted on admission on right hip, and 2cm - follows with Dr. Garcia. Wound care on board. Will need outpt f/u with Dr. Garcia. 4. HTN - diet controlled. Stable. 5. Transaminitis - possibly 2/2 statin, which will be held for now. DVT prophy: LEVI/SCDs. Has not been able to have significant improvement with PT/OT. Recommendations at this point is a [facility] facility. understands that the patient has an increased risk of falling, and needs at least a 2 person assist. She is adamant that she will do everything she can before she sends him to a [facility] facility. She does not seem to grasp the degree of assistance he will need to be cared for at home. Her plan is to transport him via a [place], however is needs a 2 person lift assist. We will need to wait until Tuesday for PFS to assist in the d/c planning. ? Hospital bed and 24hr care if possible. Physical therapist will try to speak to her grandson who is also working towards the PT field, in the hopes that he may shine some light onto these concerns. VS,Fishbone, I+O VS, Fishbone, I+O Laboratory Tests 10/04/16 05:43 Calcium Level 7.9 L, Aspartate Amino Transf (AST/SGOT) 94 H, Alanine Aminotransferase (ALT/SGPT) 119 H, Alkaline Phosphatase 155 H, Total Bilirubin 0.3, Total Protein 5.7 L, Albumin 1.7 L, Red Blood Count 2.87 L, Mean Corpuscular Volume 102.3 H, Mean Corpuscular Hemoglobin 34.0 H, Mean Corpuscular Hemoglobin Concent 33.2, Red Cell Distribution Width 12.4, Neutrophils (%) (Auto) 80.8 H, Lymphocytes (%) (Auto) 11.3 L, Monocytes (%) ( Auto) 5.0, Eosinophils (%) (Auto) 1.0, Basophils (%) (Auto) 0.4, Neutrophils # ( Auto) 7.1, Lymphocytes # (Auto) 1.0 L, Monocytes # (Auto) 0.4, Eosinophils # ( Auto) 0.1, Basophils # (Auto) 0.0 Vital Signs Date Time Temp Pulse Resp B/P Pulse Ox O2 Delivery O2 Flow Rate FiO2 10/04/16 09:00 Room Air 10/04/16 06:00 97.6 71 18 97/55 96 09/28/16 08:05 2.0 I&O- Last 24 Hours up to 6 AM 10/04/16 06:00 Intake Total 2500 ml Output Total 0 ml Balance 2500 ml KIRA ERAZO MD Oct 04, 2016 13:50
[2016-10-04 14:00] VITALS: BP 118/56
[2016-10-04 22:00] VITALS: BP 128/60
[2016-10-05 06:00] VITALS: BP 104/57
[2016-10-05] MEDS: SANTYL OINT 30GM TOP SCH (09:30)
[2016-10-05] MEDS: DOCUSATE SOD LIQ 100MG/10ML UDC PO SCH ×2 (09:30→20:50)
[2016-10-05] MEDS: AUGMENTIN 875 MG TAB PO SCH (09:30)
[2016-10-05] MEDS: ASPIRIN 81 MG ENTERIC TAB PO SCH (09:30)
--- NOTE | 2016-10-05 12:26 | IPNPDOC ---
Text Note Date of Service The patient was seen on 10/05/16 at 12:14. NOTE Subjective: Patient is an 81 year old male with a PMHx of a carotid endarterectomy (complicated by hemorrhage and CVA), HTN, and DLP who presented to the ER with symptoms of a cold for 7 days. He was found to have HCAP pneumonia and was admitted to the hospital. He has shown improvement and was transitioned to oral antibiotics. Patient was seen and examined at the bedside. He remains non-verbal. Objective: Vitals (See below) General: Lying in bed, no acute distress, comfortable, Awake HEENT: NC, AT CVS: RRR, +S1S2 Lungs: Fair air entry b/l, + Crackles at b/l lung bases, no wheezing / rhonchi Abdomen: Soft, ND, NT, +BSx4 Extremities: +PPx4, -edema, -calf tenderness, + Contractures of b/l legs, + Heel ulcers b/l Assessment and plan: 1. HCAP - No symptoms of SOB or cough today - No recent lab work today; will repeat lab work tomorrow - Blood cultures remain negative - s/p Vanco and Levaquin; c/w Augmentin (Day #9 of antibiotics) 2. 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 Pressure ulcers at R hip and b/l heels - c/w wound care - outpatient f/u with Dr. Garcia 4. HTN - BP well controlled as inpatient 5. Elevated liver enzymes - possibly 2/2 statin - on hold for now 6. DLP - Statin discontinued for now 7. DVT prophylaxis - c/w SCD Disposition: - Discussed with today; advised her that taking patient home is an unrealistic option at this point, given all that is required - Advised that he should receive some physical therapy at a rehab center until his requirements are more manageable - Physical therapy has requested 24 hour care and 2 person assist - Will continue to discuss with case management and PFS VS,Fishbone, I+O VS, Fishbone, I+O Vital Signs Date Time Temp Pulse Resp B/P Pulse Ox O2 Delivery O2 Flow Rate FiO2 10/05/16 09:00 Room Air 10/05/16 06:00 97.0 73 18 104/57 99 I&O- Last 24 Hours up to 6 AM 10/05/16 06:00 Intake Total 2072 ml Output Total 0 ml Balance 2072 ml FRANKLYN ROJAS MD Oct 05, 2016 12:26
[2016-10-05 12:42] LABS: BASO % 0.5 % (0.0-1.0); EOS # 0.1 K/mm3 (0.0-0.50); EOS % 0.7 % (0.0-3.0); LARGE UNSTAINED CELL # 0.2 K/mm3 (0.0-0.4); LARGE UNSTAINED CELL % 1.6 % (0.0-4.0); LYMPH # 1.2 K/mm3 (1.5-4.5); LYMPH % 11.8 % (24.0-44.0); MEAN CORPUSCULAR HEMOGLOBIN 34.5 pg (27.0-33.0); MEAN CORPUSCULAR HGB CONC 33.4 g/dl (32.0-36.5); MEAN CORPUSCULAR VOLUME 103.1 fl (80.0-96.0); MONO # 0.5 K/mm3 (0.0-0.8); MONO % 4.4 % (0.0-5.0); NEUTROPHILS # 8.3 K/mm3 (1.8-7.7); PLATELET COUNT, AUTOMATED 534 k/mm3 (150-450); RED CELL DISTRIBUTION WIDTH 12.4 % (11.5-14.5); WHITE BLOOD COUNT 10.3 K/mm3 (4.0-10.0)
[2016-10-05 12:58] LABS: ALBUMIN/GLOBULIN RATIO 0.54 (1.00-1.93); ALKALINE PHOSPHATASE 134 U/L (45-117); ALT/SGPT 95 U/L (12-78); ANION GAP 7 MEQ/L (8-16); AST/SGOT 53 U/L (15-37); BILIRUBIN,TOTAL 0.4 MG/DL (0.2-1.0); BLOOD UREA NITROGEN 21 MG/DL (7-18); CARBON DIOXIDE LEVEL 31 MEQ/L (21-32); CHLORIDE LEVEL 106 MEQ/L (98-107); GLOMERULAR FILTRATION RATE > 60.0 (>35); GLUCOSE, FASTING 90 MG/DL (83-110); POTASSIUM SERUM 4.3 MEQ/L (3.5-5.1); SODIUM LEVEL 144 MEQ/L (136-145); TOTAL PROTEIN 5.7 GM/DL (6.4-8.2)
[2016-10-05 14:00] VITALS: BP 100/50
[2016-10-05] MEDS: ACETAMINOPHEN TAB 650MG DOSE (2X325MG) PO PRN (21:07)
[2016-10-05 22:00] VITALS: BP 126/57
[2016-10-06 06:00] VITALS: BP 110/58
[2016-10-06 06:38] LABS: BASO # 0.1 K/mm3 (0.0-0.2); BASO % 0.7 % (0.0-1.0); EOS # 0.1 K/mm3 (0.0-0.50); LARGE UNSTAINED CELL # 0.1 K/mm3 (0.0-0.4); LARGE UNSTAINED CELL % 1.1 % (0.0-4.0); LYMPH # 1.4 K/mm3 (1.5-4.5); LYMPH % 15.6 % (24.0-44.0); MEAN CORPUSCULAR HEMOGLOBIN 33.3 pg (27.0-33.0); MEAN CORPUSCULAR HGB CONC 31.1 g/dl (32.0-36.5); MEAN CORPUSCULAR VOLUME 107.1 fl (80.0-96.0); MONO # 0.5 K/mm3 (0.0-0.8); MONO % 5.4 % (0.0-5.0); NEUTROPHILS # 6.3 K/mm3 (1.8-7.7); NEUTROPHILS % 76.1 % (36.0-66.0); PLATELET COUNT, AUTOMATED 538 k/mm3 (150-450); RED CELL DISTRIBUTION WIDTH 13.5 % (11.5-14.5); WHITE BLOOD COUNT 8.2 K/mm3 (4.0-10.0)
[2016-10-06 07:01] LABS: ALBUMIN 1.8 GM/DL (3.2-5.2); ALBUMIN/GLOBULIN RATIO 0.47 (1.00-1.93); ALKALINE PHOSPHATASE 135 U/L (45-117); ALT/SGPT 82 U/L (12-78); ANION GAP 5 MEQ/L (8-16); AST/SGOT 44 U/L (15-37); BILIRUBIN,TOTAL 0.2 MG/DL (0.2-1.0); BLOOD UREA NITROGEN 23 MG/DL (7-18); CALCIUM LEVEL 7.9 MG/DL (8.8-10.2); CARBON DIOXIDE LEVEL 31 MEQ/L (21-32); CHLORIDE LEVEL 109 MEQ/L (98-107); CREATININE FOR GFR 0.77 MG/DL (0.70-1.30); GLOMERULAR FILTRATION RATE > 60.0 (>35); GLUCOSE, FASTING 98 MG/DL (83-110); MAGNESIUM LEVEL 2.3 MG/DL (1.8-2.4); POTASSIUM SERUM 4.3 MEQ/L (3.5-5.1); SODIUM LEVEL 145 MEQ/L (136-145); TOTAL PROTEIN 5.6 GM/DL (6.4-8.2)
[2016-10-06] MEDS: DOCUSATE SOD LIQ 100MG/10ML UDC PO SCH ×2 (10:32→20:55)
[2016-10-06] MEDS: SANTYL OINT 30GM TOP SCH (10:33)
[2016-10-06] MEDS: ASPIRIN 81 MG ENTERIC TAB PO SCH (10:33)
--- NOTE | 2016-10-06 12:27 | IPNPDOC ---
Text Note Date of Service The patient was seen on 10/06/16 at 12:24. NOTE Subjective: Patient is an 81 year old male with a PMHx of a carotid endarterectomy (complicated by hemorrhage and CVA), HTN, and DLP who presented to the ER with symptoms of a cold for 7 days. He was found to have HCAP pneumonia and was admitted to the hospital. He has shown improvement and was transitioned to oral antibiotics. Patient was seen and examined at the bedside. He remains non-verbal. I have discussed with his . Will have a conversation to establish medicaid. Objective: Vitals (See below) General: Lying in bed, no acute distress, comfortable, Awake HEENT: NC, AT CVS: RRR, +S1S2 Lungs: Fair air entry b/l, + Crackles at b/l lung bases, no wheezing / rhonchi Abdomen: Soft, ND, NT, +BSx4 Extremities: +PPx4, -edema, -calf tenderness, + Contractures of b/l legs, + Heel ulcers b/l Assessment and plan: 1. Possible MRSA or gram neg pneumonia in setting of HCAP - No symptoms of SOB or cough today - No recent lab work today; will repeat lab work tomorrow - CXR consistent with infiltrates - Blood cultures remain negative - s/p Vanco and Levaquin; c/w Augmentin (Day #10 of antibiotics) 2. 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 Pressure ulcers at R hip and b/l heels - c/w wound care - outpatient f/u with Dr. Garcia 4. HTN - BP well controlled as inpatient 5. Elevated liver enzymes - possibly 2/2 statin - liver enzymes trending down - statin on hold for now 6. DLP - Statin discontinued for now 7. DVT prophylaxis - c/w SCD 8. Severe protein calorie malnutrition Disposition: - Patient's is willing to get placement at Rehab center - Working on setting up medicaid - Physical therapy has requested 24 hour care and 2 person assist - Will continue to discuss with case management and PFS VS,Fishbone, I+O VS, Fishbone, I+O Laboratory Tests 10/05/16 12:31 Calcium Level 8.0 L, Aspartate Amino Transf (AST/SGOT) 53 H, Alanine Aminotransferase (ALT/SGPT) 95 H, Alkaline Phosphatase 134 H, Total Bilirubin 0.4, Total Protein 5.7 L, Albumin 2.0 L, Red Blood Count 3.07 L, Mean Corpuscular Volume 103.1 H, Mean Corpuscular Hemoglobin 34.5 H, Mean Corpuscular Hemoglobin Concent 33.4, Red Cell Distribution Width 12.4, Neutrophils (%) (Auto) 81.0 H, Lymphocytes (%) (Auto) 11.8 L, Monocytes (%) ( Auto) 4.4, Eosinophils (%) (Auto) 0.7, Basophils (%) (Auto) 0.5, Neutrophils # ( Auto) 8.3 H, Lymphocytes # (Auto) 1.2 L, Monocytes # (Auto) 0.5, Eosinophils # ( Auto) 0.1, Basophils # (Auto) 0.0 10/06/16 06:22 Calcium Level 7.9 L, Aspartate Amino Transf (AST/SGOT) 44 H, Alanine Aminotransferase (ALT/SGPT) 82 H, Alkaline Phosphatase 135 H, Total Bilirubin 0.2, Total Protein 5.6 L, Albumin 1.8 L, Red Blood Count 2.83 L, Mean Corpuscular Volume 107.1 H, Mean Corpuscular Hemoglobin 33.3 H, Mean Corpuscular Hemoglobin Concent 31.1 L, Red Cell Distribution Width 13.5, Neutrophils (%) (Auto) 76.1 H, Lymphocytes (%) (Auto) 15.6 L, Monocytes (%) ( Auto) 5.4 H, Eosinophils (%) (Auto) 1.0, Basophils (%) (Auto) 0.7, Neutrophils # (Auto) 6.3, Lymphocytes # (Auto) 1.4 L, Monocytes # (Auto) 0.5, Eosinophils # (Auto) 0.1, Basophils # (Auto) 0.1 Vital Signs Date Time Temp Pulse Resp B/P Pulse Ox O2 Delivery O2 Flow Rate FiO2 10/06/16 06:00 96.6 73 18 110/58 99 Room Air I&O- Last 24 Hours up to 6 AM 10/06/16 06:00 Intake Total 1800 ml Balance 1800 ml FRANKLYN ROJAS MD Oct 06, 2016 12:27
[2016-10-06 14:00] VITALS: BP 115/53
[2016-10-06] MEDS: ACETAMINOPHEN TAB 650MG DOSE (2X325MG) PO PRN (20:55)
[2016-10-06 22:00] VITALS: BP 138/59
[2016-10-07 06:00] VITALS: BP 105/55
[2016-10-07 06:48] LABS: BASO # 0.1 K/mm3 (0.0-0.2); BASO % 0.9 % (0.0-1.0); EOS # 0.1 K/mm3 (0.0-0.50); LARGE UNSTAINED CELL # 0.1 K/mm3 (0.0-0.4); LARGE UNSTAINED CELL % 1.4 % (0.0-4.0); LYMPH # 1.4 K/mm3 (1.5-4.5); LYMPH % 17.9 % (24.0-44.0); MEAN CORPUSCULAR HEMOGLOBIN 32.6 pg (27.0-33.0); MEAN CORPUSCULAR HGB CONC 30.9 g/dl (32.0-36.5); MEAN CORPUSCULAR VOLUME 105.4 fl (80.0-96.0); MONO # 0.4 K/mm3 (0.0-0.8); MONO % 5.8 % (0.0-5.0); NEUTROPHILS # 5.4 K/mm3 (1.8-7.7); NEUTROPHILS % 72.9 % (36.0-66.0); PLATELET COUNT, AUTOMATED 544 k/mm3 (150-450); RED CELL DISTRIBUTION WIDTH 13.4 % (11.5-14.5); WHITE BLOOD COUNT 7.3 K/mm3 (4.0-10.0)
[2016-10-07 07:10] LABS: ALBUMIN 1.8 GM/DL (3.2-5.2); ALBUMIN/GLOBULIN RATIO 0.55 (1.00-1.93); ALKALINE PHOSPHATASE 134 U/L (45-117); ALT/SGPT 86 U/L (12-78); ANION GAP 8 MEQ/L (8-16); AST/SGOT 47 U/L (15-37); BILIRUBIN,TOTAL 0.2 MG/DL (0.2-1.0); BLOOD UREA NITROGEN 24 MG/DL (7-18); CALCIUM LEVEL 7.8 MG/DL (8.8-10.2); CARBON DIOXIDE LEVEL 30 MEQ/L (21-32); CHLORIDE LEVEL 107 MEQ/L (98-107); CREATININE FOR GFR 0.78 MG/DL (0.70-1.30); GLOMERULAR FILTRATION RATE > 60.0 (>35); GLUCOSE, FASTING 87 MG/DL (83-110); MAGNESIUM LEVEL 2.3 MG/DL (1.8-2.4); POTASSIUM SERUM 4.4 MEQ/L (3.5-5.1); SODIUM LEVEL 145 MEQ/L (136-145); TOTAL PROTEIN 5.1 GM/DL (6.4-8.2)
[2016-10-07] MEDS ORDERED: Collagenase TOP (07:16)
[2016-10-07] MEDS ORDERED: DOCU10ELUD PO (07:16)
[2016-10-07] MEDS ORDERED: ASPI81TAEC PO (07:16)
[2016-10-07] MEDS: DOCUSATE SOD LIQ 100MG/10ML UDC PO SCH (09:55)
[2016-10-07] MEDS: ASPIRIN 81 MG ENTERIC TAB PO SCH (09:55)
[2016-10-07] MEDS: ACETAMINOPHEN TAB 650MG DOSE (2X325MG) PO PRN (09:56)
[2016-10-07] MEDS: SANTYL OINT 30GM TOP SCH (09:56)
--- NOTE | 2016-10-07 15:19 | DSES ---
DATE OF ADMISSION: 09/27/2016 DATE OF DISCHARGE: 10/07/2016 PRIMARY CARE PROVIDER: Dr. Leon Deras REFERRING PHYSICIAN: None. CONSULTING PHYSICIANS: None. CONDITION ON DISCHARGE: Stable. FINAL DIAGNOSIS: Possible methicillin-resistant Staphylococcus aureus (MRSA) or Gram-negative pneumonia in the setting of healthcare-associated pneumonia. PROCEDURES: None. HISTORY OF PRESENT ILLNESS: The patient is an 81-year-old male with a past medical history of carotid endarterectomy with complications including hemorrhage and cerebrovascular accident, hypertension, and dyslipidemia who presented to the emergency room with symptoms of cold for the last seven days. He was found to have healthcare-associated pneumonia and was admitted to the hospital. HOSPITAL COURSE: 1. Possible methicillin-resistant Staphylococcus aureus (MRSA) or Gram-negative pneumonia in the setting of healthcare-associated pneumonia. No symptoms currently. Shortness of breath and cough have resolved. Chest x-ray is consistent with infiltrated. Blood cultures remain negative. He was initially started on vancomycin and Levaquin, has been transitioned to Augmentin, and has completed a course of antibiotics for 10 days. 2. Cerebrovascular accident (CVA) with expressive aphasia, likely secondary to complications of carotid endarterectomy. 3. Pressure ulcers of the right hip and bilateral heels. Continue with wound care. Outpatient followup with Dr. Garcia. 4. Hypertension. Blood pressure well controlled as inpatient. 5. Elevated liver enzymes, possibly secondary to statin. Liver enzymes trending down. Statin has been put on hold. 6. Dyslipidemia. Statin discontinued for now. 7. Deep vein thrombosis (DVT) prophylaxis. Continue with sequential compression devices. 8. Sever protein-calorie malnutrition. DISCHARGE MEDICATIONS: The patient is being discharged home with: - aspirin 81 mg by mouth daily - docusate 100 mg by mouth twice a day - Santyl dressing to be applied daily Continued medications include: - acetaminophen 325 mg by mouth every four hours as needed for pain - Ensure Plus one liquid by mouth every morning DISCHARGE INSTRUCTIONS: The patient has been advised to followup with his primary care provider and Dr. Garcia within the next seven days. He has been advised to remain compliant with treatment plan and medications and call to confirm scheduled appointment. They have been advised to return to the emergency room if they experience any problems. TIME SPENT ON DISCHARGE: 35 minutes.
== END 2016-10-07 10:40 | DRG 177 ==
LOC: M ED 07:36 → M ED INP 15:01 → M MSPAV 20:11
PROVIDERS: ADMIT Hospitalist; ATTEND Internal Medicine
DX: J15.212 Pneumonia due to Methicillin resistant Staphylococcus aureus (principal); L89.213 Pressure ulcer of right hip, stage 3; E78.5 Hyperlipidemia, unspecified; L89.210 Pressure ulcer of right hip, unstageable; J18.9 Pneumonia, unspecified organism; J15.6 Pneumonia due to other Gram-negative bacteria; I10 Essential (primary) hypertension; Z79.82 Long term (current) use of aspirin; Z79.899 Other long term (current) drug therapy; I69.920 Aphasia following unspecified cerebrovascular disease; M19.90 Unspecified osteoarthritis, unspecified site; E55.9 Vitamin D deficiency, unspecified; N40.0 Benign prostatic hyperplasia without lower urinary tract symptoms; M81.0 Age-related osteoporosis without current pathological fracture

== ENCOUNTER → 2016-10-12 | Outpatient (REF) ==
[~2016-10-12] MED LIST changes: +ASPI81TAEC PO; +Collagenase TOP; +DOCU10ELUD PO
[2016-10-12 10:59] LABS: MEAN CORPUSCULAR HEMOGLOBIN 33.8 pg (27.0-33.0); MEAN CORPUSCULAR HGB CONC 32.3 g/dl (32.0-36.5); MEAN CORPUSCULAR VOLUME 104.7 fl (80.0-96.0); RED CELL DISTRIBUTION WIDTH 12.7 % (11.5-14.5); WHITE BLOOD COUNT 5.3 K/mm3 (4.0-10.0)
[2016-10-12 11:14] LABS: ANION GAP 9 MEQ/L (8-16); BLOOD UREA NITROGEN 21 MG/DL (7-18); CALCIUM LEVEL 8.4 MG/DL (8.8-10.2); CARBON DIOXIDE LEVEL 30 MEQ/L (21-32); CHLORIDE LEVEL 106 MEQ/L (98-107); CREATININE FOR GFR 0.76 MG/DL (0.70-1.30); GLOMERULAR FILTRATION RATE > 60.0 (>35); GLUCOSE, FASTING 99 MG/DL (83-110); PERCENT SATURATION 19.5 % (19.7-37.4); POTASSIUM SERUM 4.4 MEQ/L (3.5-5.1); SODIUM LEVEL 145 MEQ/L (136-145)
[2016-10-12 11:17] LABS: FOLATE 16.7 NG/ML
== END ==
PROVIDERS: ATTEND Internal Medicine
DX: I10 Essential (primary) hypertension (principal)

== ENCOUNTER → 2016-10-19 | Outpatient (REF) ==
[2016-10-19 10:54] LABS: MEAN CORPUSCULAR HEMOGLOBIN 32.4 pg (27.0-33.0); MEAN CORPUSCULAR HGB CONC 30.8 g/dl (32.0-36.5); MEAN CORPUSCULAR VOLUME 105.4 fl (80.0-96.0); RED CELL DISTRIBUTION WIDTH 12.7 % (11.5-14.5); WHITE BLOOD COUNT 6.1 K/mm3 (4.0-10.0)
[2016-10-19 11:10] LABS: ANION GAP 6 MEQ/L (8-16); BLOOD UREA NITROGEN 17 MG/DL (7-18); CALCIUM LEVEL 9.1 MG/DL (8.8-10.2); CARBON DIOXIDE LEVEL 33 MEQ/L (21-32); CHLORIDE LEVEL 105 MEQ/L (98-107); CREATININE FOR GFR 0.78 MG/DL (0.70-1.30); GLOMERULAR FILTRATION RATE > 60.0 (>35); GLUCOSE, FASTING 119 MG/DL (83-110); POTASSIUM SERUM 4.4 MEQ/L (3.5-5.1); SODIUM LEVEL 144 MEQ/L (136-145)
== END ==
PROVIDERS: ATTEND Internal Medicine
DX: I10 Essential (primary) hypertension (principal)

== ENCOUNTER → 2016-11-09 | Outpatient (REF) ==
[2016-11-09 10:41] LABS: MEAN CORPUSCULAR HEMOGLOBIN 32.7 pg (27.0-33.0); MEAN CORPUSCULAR HGB CONC 32.1 g/dl (32.0-36.5); MEAN CORPUSCULAR VOLUME 101.9 fl (80.0-96.0); RED CELL DISTRIBUTION WIDTH 12.4 % (11.5-14.5); WHITE BLOOD COUNT 7.1 K/mm3 (4.0-10.0)
== END ==
PROVIDERS: ATTEND Internal Medicine
DX: D64.9 Anemia, unspecified (principal)

== ENCOUNTER → 2016-11-15 | Outpatient (REF) ==
--- NOTE | 2016-11-15 16:49 | REP ---
Portable lumbar spine single view. Limited study: History: Low back pain. Findings: An oblique radiograph of the lumbar spine is presented. Lumbar vertebral body heights are preserved. No bony destructive lesion is appreciated. There are degenerative disc and facet changes in the lumbar spine. The distal abdominal aorta is mildly aneurysmal measuring 3.2 cm in greatest transverse dimension. Impression: Degenerative disc and facet changes in the lumbar spine. No acute bony abnormality is appreciated on this single view oblique radiograph of the lumbar spine. 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 Signed by John Gunter MD 11/15/2016 05:05 P
== END ==
PROVIDERS: ATTEND Internal Medicine
DX: M54.5 Low back pain (principal)

== ENCOUNTER → 2016-11-16 | Outpatient (REF) ==
[2016-11-16 12:09] LABS: MEAN CORPUSCULAR HEMOGLOBIN 33.4 pg (27.0-33.0); MEAN CORPUSCULAR HGB CONC 32.7 g/dl (32.0-36.5); MEAN CORPUSCULAR VOLUME 102.3 fl (80.0-96.0); RED CELL DISTRIBUTION WIDTH 12.6 % (11.5-14.5)
[2016-11-16 12:27] LABS: ANION GAP 10 MEQ/L (8-16); BLOOD UREA NITROGEN 35 MG/DL (7-18); CALCIUM LEVEL 8.6 MG/DL (8.8-10.2); CARBON DIOXIDE LEVEL 28 MEQ/L (21-32); CHLORIDE LEVEL 104 MEQ/L (98-107); CREATININE FOR GFR 0.77 MG/DL (0.70-1.30); GLOMERULAR FILTRATION RATE > 60.0 (>35); GLUCOSE, FASTING 138 MG/DL (83-110); POTASSIUM SERUM 4.1 MEQ/L (3.5-5.1); SODIUM LEVEL 142 MEQ/L (136-145)
== END ==
PROVIDERS: ATTEND Internal Medicine
DX: I10 Essential (primary) hypertension (principal)

== ENCOUNTER → 2016-11-18 | Outpatient (CLI) | payer MEDICARE ==
--- NOTE | 2016-11-18 09:14 | REP ---
MR LUMBAR SPINE WITHOUT CONTRAST: HISTORY: Back and bilateral rib pain. Decreased signal intensity on T2-weighted images is present in the lumbar intervertebral discs. The discs are decreased in height. These findings are consistent with disc degeneration. A diffuse disc bulge is present at the L1-2 level. There is minimal compression of the thecal sac. There is hypertrophy of the posterior articulating facets. The L1 nerves exit the neural foramina without compression. A diffuse disc bulge is present at the L2-3 level. There is minimal compression of the thecal sac. There is hypertrophy of the posterior articulating facets. The L2 nerves exit the neural foramina without compression. A diffuse disc bulge is present at the L3-4 level. There is hypertrophy of the ligamenta flava and posterior articulating facets. These findings produce mild central canal stenosis. The L3 nerves exit the neural foramina without compression. A diffuse disc bulge is present at the L4-5 level. There is hypertrophy of the ligamenta flava and posterior articulating facets. These findings produce mild central canal stenosis. There is compression of the left L4 nerve in the neural foramen. The right L4 nerve exits the neural foramen without compression. A diffuse disc bulge is present at the L5-S1 level. There is minimal compression of the thecal sac. There is hypertrophy of the posterior articulating facets. There is compression of the L5 nerves in the neural foramina. The conus medullaris is normal in appearance terminating at the level of the T12-L1 intervertebral disc. A hemangioma is present in the L2 vertebral body. Increased signal intensity on T2-weighted images is present in the endplates of the L5 and S1 vertebral bodies. This represents degenerative change. IMPRESSION: 1. Diffuse disc bulges at the L1-2, L2-3 and L5-S1 levels with minimal thecal sac compression. There is compression of the L5 nerves in the neural foramina. 2. Mild central canal stenosis at the L3-4 and L4-5 levels secondary to disc bulge, ligamentous and facet hypertrophy. There is compression of the left L4 nerve in the neural foramen. Signed by Stevo Ashley MD 11/18/2016 09:21 A
== END ==
LOC: M RAD 07:10
PROVIDERS: ATTEND Physician Assistant
DX: M54.5 Low back pain (principal)